=== PATIENT | male | born 1955 | race Hispanic/Latino ===

== ENCOUNTER 2017-04-09 21:38 | Observation (INO) | payer MEDICARE, OTHER ==
[2017-04-09 21:57] VITALS: BMI 29.5
[2017-04-09] MEDS ORDERED: Sodium Chloride 0.9% 1,000 ML IV STA (22:20)
[2017-04-09] MEDS ORDERED: Naloxone 0.4 mg/ml Inj (Adult) IVP STA (22:21)
--- NOTE | 2017-04-09 22:57 | ED PDOC ---
Arrival/HPI <Clarence Patel - Last Filed: 04/10/17 01:10> - General Historian: Patient, EMS <Brandon Gonzalez - Last Filed: 04/10/17 02:49> - General Chief Complaint: Trauma Time Seen by Provider: 04/09/17 22:12 - History of Present Illness Narrative History of Present Illness (Text): 04/09/17 22:50 61yo male BIBA for evaluation after he was found on the street. Per the RN, EMS notes that patient was picked up from the street, while on the ground. Pt is a poor historian, lethargic, barely clear speech. He have facial laceration. He denies any pain. 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") Hx Tuberculosis: No - Neurological Hx Neurological Disorder: No - HEENT Hx HEENT Disorder: No - Renal Hx Renal Disorder: No - Endocrine/Metabolic Hx Endocrine Disorders: No - Hematological/Oncological Hx Blood Disorders: No - Integumentary Hx Dermatological Disorder: No - Musculoskeletal/Rheumatological Hx Musculoskeletal Disorders: Yes Hx Arthritis: Yes Hx Back Pain: Yes Hx Degenerative Joint Disease: Yes Hx Falls: Yes Hx Herniated Disk: Yes Hx Rhabdomyolysis: Yes Other/Comment: RHABDOMYOLYSIS,L SHOULDER DISLOCATION 07-28-15,RIGHT SHOULDER DISLOCATION,ROTATOR CUFF TEAR,TORN MENISCUS-KNEES - Gastrointestinal Hx Gastrointestinal Disorders: Yes Hx Gastroesophageal Reflux: Yes - Genitourinary/Gynecological Hx Genitourinary Disorders: No - Psychiatric Hx Psychophysiologic Disorder: No Hx Emotional Abuse: No Hx Physical Abuse: No Hx Substance Use: Yes Other/Comment: ETOH ABUSE COCAINE PCP - Surgical History Hx Tonsillectomy: Yes (1960) - Anesthesia Hx Anesthesia: Yes Hx Anesthesia Reactions: No Hx Malignant Hyperthermia: No - Suicidal Assessment Feels Threatened In Home Enviroment: No <Brandon Gonzalez A - Last Filed: 04/10/17 02:49> Family/Social History - Physician Review Nursing Documentation Reviewed: Yes Family/Social History: Unknown Family HX Smoking Status: Heavy Smoker > 10 Cigarettes Daily Hx Alcohol Use: No (Pt denies) Hx Substance Use: Yes Substance used: cocaine, marijuana, lsd Hx Substance Use Treatment: No <Brandon Gonzalez - Last Filed: 04/10/17 02:49> Allergies/Home Meds <Clarence Patel - Last Filed: 04/10/17 01:10> <Brandon Gonzalez - Last Filed: 04/10/17 02:49> Allergies/Adverse Reactions: Allergies Penicillins Allergy (Verified 06/17/16 12:05) RASH Home Medications: Home Meds Medication Instructions Recorded Confirmed Omeprazole 40 mg PO DAILY 08/11/16 08/21/16 oxyCODONE/Acetaminophen [Percocet 1 tab PO Q4 PRN 08/11/16 08/21/16 5/325 mg Tab] Review of Systems - Physician Review All systems were reviewed & negative as marked: Yes - Review of Systems Constitutional: Normal Eyes: Normal ENT: Normal Respiratory: Normal Cardiovascular: Normal Gastrointestinal: Normal Genitourinary Male: Normal Musculoskeletal: Normal Skin: Normal Neurological: Normal Endocrine: Normal Hemo/Lymphatic: Normal Psychiatric: Normal <Brandon Gonzalez A - Last Filed: 04/10/17 02:49> Physical Exam Vital Signs Reviewed: Yes Temperature: Afebrile Blood Pressure: Normal Pulse: Tachycardic Respiratory Rate: Normal Appearance: Positive for: Well-Appearing, Non-Toxic, Comfortable Pain Distress: None Mental Status: Positive for: Lethargic - Systems Exam Head: Present: Atraumatic, Normocephalic Pupils: Present: Pinpoint Extroacular Muscles: Present: EOMI Conjunctiva: Present: Normal Mouth: Present: Moist Mucous Membranes Neck: Present: Normal Range of Motion Respiratory/Chest: Present: Clear to Auscultation, Good Air Exchange. No: Respiratory Distress, Accessory Muscle Use Cardiovascular: Present: Regular Rate and Rhythm, Normal S1, S2. No: Murmurs Abdomen: Present: Normal Bowel Sounds. No: Tenderness, Distention, Peritoneal Signs Back: Present: Normal Inspection Upper Extremity: Present: Normal Inspection. No: Cyanosis, Edema Lower Extremity: Present: Normal Inspection. No: Edema Neurological: Present: GCS=15, CN II-XII Intact, Speech Normal Skin: Present: Warm, Dry, Normal Color, Laceration (2.0cm linear laceration noted on nasolabial area), Abrasion (nose and left knee). No: Rashes Psychiatric: Present: Lethargic <Brandon Gonzalez - Last Filed: 04/10/17 02:49> Vital Signs Temp Pulse Resp BP Pulse Ox 04/09/17 23:33 89 16 100 04/09/17 23:16 100 H 20 150/96 H 96 04/09/17 21:54 98.3 F 118 H 12 110/76 92 L Medical Decision Making <Clarence Patel - Last Filed: 04/10/17 01:10> <Brandon Gonzalez - Last Filed: 04/10/17 02:49> ED Course and Treatment: 04/10/17 02:44 Pt presented for stated history. He became mildly alert in ED after narcan was given, but still appeared lethargic. He have leukocytosis on lab, source is unknown at this time. He had multiple drug substances on his drug test. Nasolabial laceration was irrigated with NS, anesthetized with 1%lido and approximated with 5 interrupted sutures with absorbable sutures. Head Ct- No acute finding Maxillofacial - Possible nasal fracture It is not cleared if pt had a syncopal episode secondary to substance use . Pt will be placed on OBS for further obs and evaluation. Case was ABBY Hills and he requested that pt be admitted under the hospitalist. Case was ABBY Angelo and she accepted the pt. (Brandon Gonzalez) - Lab Interpretations Lab Results: 04/09/17 22:50 04/09/17 22:50 Lab Results 04/10/17 00:00: Urine Opiates Screen Positive H, Urine Methadone Screen Negative , Ur Barbiturates Screen Negative, Ur Phencyclidine Scrn Positive H, Ur Amphetamines Screen Negative, U Benzodiazepines Scrn Positive H, U Oth Cocaine Metabols Positive H, U Cannabinoids Screen Negative 04/09/17 22:50: Alcohol, Quantitative < 10 04/09/17 22:50: Sodium 142, Potassium 4.8, Chloride 103, Carbon Dioxide 27, Anion Gap 17, BUN 23 H, Creatinine 1.8 H, Est GFR ( Amer) 47, Est GFR ( Non-Af Amer) 39, Random Glucose 120 H, Calcium 9.7, Total Bilirubin 0.5, AST 28 , ALT 28, Alkaline Phosphatase 66, Total Protein 8.0, Albumin 5.1 H, Globulin 3.0, Albumin/Globulin Ratio 1.7 04/09/17 22:50: WBC 15.4 H D, RBC 4.93, Hgb 14.4, Hct 43.9, MCV 89.0, MCH 29.2, MCHC 32.8, RDW 13.4, Plt Count 269, MPV 10.5, Gran % 87.1 H, Lymph % (Auto) 6.4 L, [place] % (Auto) 6.0, Eos % (Auto) 0.3 L, Baso % (Auto) 0.2, Gran # 13.41 H, Lymph # 1.0 L, [place] # 0.9 H, Eos # 0.0, Baso # 0.03 - RAD Interpretation Radiology Orders: 04/09/17 22:21 HEAD W/O CONTRAST [CT] Stat MAXILLOFACIAL W/O CONTRAST [CT] Stat - Medication Orders Current Medication Orders: Acetaminophen (Tylenol 325mg Tab) 650 mg PO Q6H PRN PRN Reason: Fever >100.4 F Famotidine (Pepcid 20mg/50ml Premix) 50 mls @ 100 mls/hr IV Q12 KRISTA Sodium Chloride (Sodium Chloride 0.9%) 1,000 mls @ 999 mls/hr IV .Q1H1M STA Stop: 04/10/17 03:34 Sodium Chloride (Sodium Chloride 0.9%) 1,000 mls @ 120 mls/hr IV .Q8H20M STA Stop: 04/10/17 10:54 Ibuprofen (Motrin Tab) 600 mg PO Q6H PRN PRN Reason: Pain, Mild (1-3) Ondansetron HCl (Zofran Inj) 8 mg IVP Q8H PRN PRN Reason: Nausea/Vomiting Discontinued Medications Sodium Chloride (Sodium Chloride 0.9%) 1,000 mls @ 999 mls/hr IV .Q1H1M STA Stop: 04/09/17 23:20 Last Admin: 04/09/17 22:58 Dose: 999 mls/hr Lidocaine HCl (Lidocaine 1% (20ml)) Confirm Administered Dose 20 ml .ROUTE .STK- MED ONE Stop: 04/10/17 01:28 Naloxone HCl (Narcan) 1 mg IVP STAT STA Stop: 04/09/17 22:22 Last Admin: 04/09/17 22:57 Dose: 1 mg Naloxone HCl (Narcan) 0.02 mg IV ONCE ONE Stop: 04/10/17 02:30 Procedure: Wound Repair - Consent Obtained Consent obtained: Verbal - Performed by Performed by: Mid-level Provider - Indications Indication(s):: Laceration - Location Location:: Face (Nasolabial area) Shape:: Linear Dimensions Length cm: 2.0 <Brandon Gonzalez A - Last Filed: 04/10/17 02:49> - PA / ELEMENT[employer] PROFESSIONAL / Resident Statement / has reviewed & agrees with the documentation as recorded. / has examined the patient and agrees with the treatment plan. <Clarence Patel - Last Filed: 04/10/17 01:10> Disposition/Present on Arrival <Clarence Patel - Last Filed: 04/10/17 01:10> - Present on Arrival Any Indicators Present on Arrival: No History of DVT/PE: No History of Uncontrolled Diabetes: No Urinary Catheter: No History of Decub. Ulcer: No History Surgical Site Infection Following: None - Disposition Have Diagnosis and Disposition been Completed?: Yes Disposition Time: 02:10 <Brandon Gonzalez A - Last Filed: 04/10/17 02:49> - Disposition Diagnosis: Syncope, Laceration, Altered mental status, Nasal bone fracture Disposition: HOSPITALIZED Condition: FAIR Discharge Instructions (ExitCare): Syncope (ED) Referrals: Bert Hills MD [Primary Care Provider] - Follow up with primary
[2017-04-09 23:10] LABS: ADD MANUAL DIFF? NO
[2017-04-09 23:20] LABS: BASO # 0.03 K/mm3 (0.0-2.0); BASO % 0.2 % (0.0-3.0); EOS % 0.3 % (1.5-5.0); GRAN # 13.41 (1.4-6.5); GRAN % 87.1 % (50.0-68.0); HEMATOCRIT 43.9 % (42.0-52.0); LYMPH % 6.4 % (22.0-35.0); MEAN CORPUSCULAR HEMOGLOBIN 29.2 pg (25.0-35.0); MEAN CORPUSCULAR HGB CONC 32.8 g/dl (31.0-37.0); MEAN PLATELET VOLUME 10.5 fl (7.0-11.0); MONO # 0.9 (0.1-0.6); PLATELET COUNT 269 10^3/uL (120.0-450.0); RED CELL DISTRIBUTION WIDTH 13.4 % (11.5-14.5); WHITE BLOOD COUNT 15.4 10^3/ul (4.5-11.0)
[2017-04-09 23:25] LABS: ALB/GLOB RATIO 1.7 (1.1-1.8); BILIRUBIN,TOTAL 0.5 mg/dL (0.2-1.3); CALCIUM 9.7 mg/dL (8.4-10.5); POTASSIUM 4.8 mmol/L (3.6-5.0)
[2017-04-10] MEDS ORDERED: Lidocaine 1% Inj (20ml) ONE (01:27)
--- NOTE | 2017-04-10 01:36 | CT ---
EXAM: CT Head Without Intravenous Contrast CLINICAL HISTORY: 61 years old, male; Injury or trauma; Fall; Initial encounter; Blunt trauma (contusions or hematomas); Consciousness not specified; Additional info: Head injury TECHNIQUE: Axial computed tomography images of the head/brain without intravenous contrast. This CT exam was performed using one or more of the following dose reduction techniques: automated exposure control, adjustment of the mA and/or kV according to patient size, and/or use of iterative reconstruction technique. COMPARISON: CT - HEAD W/O CONTRAST 06/14/2016 2:48:37 PM FINDINGS: Limitations: Motion artifact - mild. Brain: No definite intracranial hemorrhage. No mass. No definite edema. Ventricles: No hydrocephalus. Bones/joints: No calvarial fracture. Mastoid air cells: No mastoid effusion. IMPRESSION: 1. No definite intracranial hemorrhage. 2. See facial bone CT report for additional details. 3. Incidental/non-acute findings are described above.
--- NOTE | 2017-04-10 01:46 | CT ---
EXAM: CT Maxillofacial Without Intravenous Contrast CLINICAL HISTORY: 61 years old, male; Injury or trauma; Fall; Initial encounter; Blunt trauma (contusions or hematomas); Cheek bone and nose and maxilla; Bilateral; Additional info: Facial injury TECHNIQUE: Axial computed tomography images of the face without intravenous contrast. This CT exam was performed using one or more of the following dose reduction techniques: automated exposure control, adjustment of the mA and/or kV according to patient size, and/or use of iterative reconstruction technique. Coronal and sagittal reformatted images were created and reviewed. COMPARISON: No relevant prior studies available. FINDINGS: Bones/joints: Tiny midline avulsion fracture nasal bone vs soft tissue calcification. Soft tissues: Minimal facial soft tissue swelling. Orbits: Unremarkable as visualized. Sinuses: Scattered minimal mucosal thickening of ethmoid sinuses. Few maxillary retention cysts. No air-fluid levels. IMPRESSION: 1. Possible nasal fracture. 2. Incidental/non-acute findings are described above.
[2017-04-10] MEDS ORDERED: Naloxone 0.4 mg/ml Inj (Adult) IV ONE (02:29)
[2017-04-10] MEDS ORDERED: Sodium Chloride 0.9% 1,000 ML IV STA ×2 (02:34→02:35)
--- NOTE | 2017-04-10 03:01 | CP.PCM.HP ---
History of Present Illness - History of Present Illness History of Present Illness: This is a 61yo M w/ a PMhx of GERD and Polysubstance abuse who is coming to the ED s/p being brought in unresponsive by EMS services after he went on a drug binge. The patient states that "like going to the [facility], he just had a little bit of everything" after "being clean for 3 years". The patient admits to nasal pain because he fell on his face. Denies PLATA, SOB, abdominal pain, N/V/D , dysuria/freq/urg, or lower extremity pain/swelling, AV hallucinations, suicidal ideation, or the wish to hurt others. PMHx: Polysubstance abuse Allergies: PCN Surgeries: Hernia surgery and tonsillectomy in the 60's Meds: Omeprazole Social: unemployed on disability, lives in the [facility], "has been clean for 3 years ", denies EtOH, smokes 1ppd/30 years Fam Hx: Dad heart disease, Present on Admission - Present on Admission Any Indicators Present on Admission: No History of DVT/PE: No History of Uncontrolled Diabetes: No Urinary Catheter: No Decubitus Ulcer Present: No Past Patient History - Infectious Disease Hx of Infectious Diseases: None - Tetanus Immunizations Tetanus Immunization: Unknown - Past Medical History & Family History Past Medical History?: Yes - Past Social History Smoking Status: Heavy Smoker > 10 Cigarettes Daily - CARDIAC Hx Cardiac Disorders: Yes Hx Heart Murmur: Yes (ASYMPOMATIC) - PULMONARY Hx 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") Hx Tuberculosis: No - NEUROLOGICAL Hx Neurological Disorder: No - HEENT Hx HEENT Problems: No - RENAL Hx Chronic Kidney Disease: No - ENDOCRINE/METABOLIC Hx Endocrine Disorders: No - HEMATOLOGICAL/ONCOLOGICAL Hx Blood Disorders: No - INTEGUMENTARY Hx Dermatological Problems: No - MUSCULOSKELETAL/RHEUMATOLOGICAL Hx Musculoskeletal Disorders: Yes Hx Arthritis: Yes Hx Back Pain: Yes Hx Degenerative Joint Disease: Yes Hx Falls: Yes Hx Herniated Disk: Yes Hx Rhabdomyolysis: Yes Other/Comment: RHABDOMYOLYSIS,L SHOULDER DISLOCATION 07-28-15,RIGHT SHOULDER DISLOCATION,ROTATOR CUFF TEAR,TORN MENISCUS-KNEES - GASTROINTESTINAL Hx Gastrointestinal Disorders: Yes Hx Gastroesophageal Reflux: Yes - GENITOURINARY/GYNECOLOGICAL Hx Genitourinary Disorders: No - PSYCHIATRIC Hx Psychophysiologic Disorder: No Hx Emotional Abuse: No Hx Physical Abuse: No Hx Substance Use: Yes Other/Comment: ETOH ABUSE COCAINE PCP - SURGICAL HISTORY Hx Tonsillectomy: Yes (1960) - ANESTHESIA Hx Anesthesia: Yes Hx Anesthesia Reactions: No Hx Malignant Hyperthermia: No Meds Allergies/Adverse Reactions: Allergies Allergy/AdvReac Type Severity Reaction Status Date / Time Penicillins Allergy RASH Verified 06/17/16 12:05 Physical Exam - Constitutional Appears: No Acute Distress, Unkempt, Confused Additional comments: intoxicated obese male - Head Exam Additional comments: visibly broken nose - Eye Exam Eye Exam: EOMI Pupil Exam: NORMAL ACCOMODATION - ENT Exam ENT Exam: Mucous Membranes Moist - Neck Exam Neck exam: Positive for: Full Rom. Negative for: Lymphadenopathy - Respiratory Exam Respiratory Exam: Clear to Auscultation Bilateral, NORMAL BREATHING PATTERN. absent: Rales, Rhonchi, Wheezes - Cardiovascular Exam Cardiovascular Exam: REGULAR RHYTHM, +S1, +S2 - GI/Abdominal Exam GI & Abdominal Exam: Normal Bowel Sounds, Soft. absent: Tenderness - Extremities Exam Extremities exam: Negative for: calf tenderness, normal inspection Additional comments: abrasion on the left knee, able to move all extremities without pain or problem - Back Exam Back exam: NORMAL INSPECTION. absent: CVA tenderness (L), CVA tenderness (R) - Neurological Exam Neurological exam: Alert, Oriented x3 Results - Vital Signs Recent Vital Signs: Last Vital Signs Temp 98.3 F 04/09/17 21:54 Pulse 89 04/09/17 23:33 Resp 16 04/09/17 23:33 BP 150/96 H 04/09/17 23:16 Pulse Ox 100 04/09/17 23:33 - Labs Result Diagrams: 04/09/17 22:50 04/09/17 22:50 Labs: Laboratory Results - last 24 hr 04/09/17 04/09/17 04/09/17 22:50 22:50 22:50 WBC 15.4 H D RBC 4.93 Hgb 14.4 Hct 43.9 MCV 89.0 MCH 29.2 MCHC 32.8 RDW 13.4 Plt Count 269 MPV 10.5 Gran % 87.1 H Lymph % (Auto) 6.4 L [place] % (Auto) 6.0 Eos % (Auto) 0.3 L Baso % (Auto) 0.2 Gran # 13.41 H Lymph # 1.0 L Potter # 0.9 H Eos # 0.0 Baso # 0.03 Sodium 142 Potassium 4.8 Chloride 103 Carbon Dioxide 27 Anion Gap 17 BUN 23 H Creatinine 1.8 H Est GFR ( Amer) 47 Est GFR (Non-Af Amer) 39 Random Glucose 120 H Calcium 9.7 Total Bilirubin 0.5 AST 28 ALT 28 Alkaline Phosphatase 66 Total Protein 8.0 Albumin 5.1 H Globulin 3.0 Albumin/Globulin Ratio 1.7 Urine Opiates Screen Urine Methadone Screen Ur Barbiturates Screen Ur Phencyclidine Scrn Ur Amphetamines Screen U Benzodiazepines Scrn U Oth Cocaine Metabols U Cannabinoids Screen Alcohol, Quantitative < 10 04/10/17 00:00 WBC RBC Hgb Hct MCV MCH MCHC RDW Plt Count MPV Gran % Lymph % (Auto) [place] % (Auto) Eos % (Auto) Baso % (Auto) Gran # Lymph # Potter # Eos # Baso # Sodium Potassium Chloride Carbon Dioxide Anion Gap BUN Creatinine Est GFR ( Amer) Est GFR (Non-Af Amer) Random Glucose Calcium Total Bilirubin AST ALT Alkaline Phosphatase Total Protein Albumin Globulin Albumin/Globulin Ratio Urine Opiates Screen Positive H Urine Methadone Screen Negative Ur Barbiturates Screen Negative Ur Phencyclidine Scrn Positive H Ur Amphetamines Screen Negative U Benzodiazepines Scrn Positive H U Oth Cocaine Metabols Positive H U Cannabinoids Screen Negative Alcohol, Quantitative Assessment & Plan - Assessment and Plan (Free Text) Assessment: 61yo M admitted for AMS and fall AMS w/ Fall -CT Maxillofacial shows broken nasal bone -ENT eval -pain control Polysubstance Abuse (+ for PCP, Benzo, Opoids, Cocaine) -two doses of narcan given -patient is not combatitive; however erum ordered PRN for agitation as he has been in the past Leukocytosis -blood cultures f/u -VBG shock panel f/u -urinalysis f/u Proph Pepcid Heart Healthy Diet SCD Case discussed with Dr. Petey Murphy PGY1 Night Float Decision To Admit - Pt Status Changed To: Hospital Disposition Of: Observation - . Bed Request Type: Med/Surg Admitting Physician: Lyric Angelo
[2017-04-10] MEDS ORDERED: Naloxone 0.4 mg/ml Inj (Adult) IVP STA (03:08)
[2017-04-10 03:43] LABS: URINE BILIRUBIN NEGATIVE (NEGATIVE); URINE BLOOD NEGATIVE (NEGATIVE); URINE GLUCOSE (UA) NEGATIVE (NEGATIVE); URINE KETONE NEGATIVE (NEGATIVE); URINE LEUKOCYTE ESTERASE NEGATIVE Leu/uL (NEGATIVE); URINE PROTEIN 100 mg/dL (<30 mg/dL); URINE UROBILINOGEN 0.2 E.U./dL (<1 E.U./dL)
[2017-04-10 03:46] LABS: URINE APPEARANCE CLEAR (CLEAR)
[2017-04-10 03:54] LABS: INR 0.99 (0.93-1.08)
[2017-04-10 04:49] LABS: VENOUS BLOOD GAS BASE EXCESS 2.7 mmol/L (0.0-2.0); VENOUS BLOOD PH 7.41 (7.32-7.43)
[2017-04-10] MEDS ORDERED: Aztreonam 1 Gm in NS 100mL 100 ML IVPB STA (05:32)
--- NOTE | 2017-04-10 10:25 | RAD ---
HISTORY: Leukocytosis. Portable study 04:55. COMPARISON: No prior. FINDINGS: LUNGS: No active pulmonary disease. PLEURA: No significant pleural effusion identified, no pneumothorax apparent. CARDIOVASCULAR: No radiographic findings to suggest acute or significant cardiovascular disease. OSSEOUS STRUCTURES: No significant abnormalities. VISUALIZED UPPER ABDOMEN: Normal. OTHER FINDINGS: None. IMPRESSION: No active disease.
[2017-04-10] MEDS: Famotidine 20mg/50ml 20 MG/50 ML BAG IV SCH ×2 (10:39→21:04)
--- NOTE | 2017-04-10 10:39 | CARD ---
APPROVED REPORT EKG Measurement Heart [id number] HI [id number] [id number] <Conclusion> Normal sinus rhythm Left ventricular hypertrophy by voltage No change
[2017-04-10] MEDS ORDERED: Pneumococcal 23-Valent Vaccine IM ONE (14:23)
[2017-04-10] MEDS: Sodium Chloride 0.45% 1,000 ML IV SCH (19:58)
[2017-04-11 07:28] LABS: ADD MANUAL DIFF? NO
[2017-04-11 07:32] LABS: BASO # 0.02 K/mm3 (0.0-2.0); BASO % 0.2 % (0.0-3.0); EOS # 0.2 (0.0-0.7); EOS % 2.5 % (1.5-5.0); GRAN # 5.58 (1.4-6.5); GRAN % 69.6 % (50.0-68.0); HEMATOCRIT 38.8 % (42.0-52.0); LYMPH # 1.7 (1.2-3.4); LYMPH % 21.7 % (22.0-35.0); MEAN CORPUSCULAR HEMOGLOBIN 28.6 pg (25.0-35.0); MEAN CORPUSCULAR HGB CONC 32.5 g/dl (31.0-37.0); MONO # 0.5 (0.1-0.6); PLATELET COUNT 176 10^3/uL (120.0-450.0); RED CELL DISTRIBUTION WIDTH 13.3 % (11.5-14.5)
[2017-04-11 07:46] LABS: ALB/GLOB RATIO 1.5 (1.1-1.8); ALKALINE PHOSPHATASE 67 U/L (38-133); ALT/SGPT 32 U/L (7-56); AST/SGOT 21 U/L (15-59); BILIRUBIN,TOTAL 0.7 mg/dL (0.2-1.3); BLOOD UREA NITROGEN 11 mg/dL (7-21); CALCIUM 8.6 mg/dL (8.4-10.5); CARBON DIOXIDE 25 mmol/L (21-33); CHLORIDE 106 mmol/L (95-110); GFR AFRICAN-AMERICAN > 60; GLUCOSE,RANDOM 83 mg/dL (70-110); POTASSIUM 4.1 mmol/L (3.6-5.0); SODIUM 138 mmol/L (132-148)
[2017-04-11] MEDS: Sodium Chloride 0.45% 1,000 ML IV SCH (08:10)
[2017-04-11] MEDS: Famotidine 20mg/50ml 20 MG/50 ML BAG IV SCH ×2 (09:43→21:34)
[2017-04-11] MEDS: Enoxaparin 30 mg Syringe SC SCH (09:43)
--- NOTE | 2017-04-11 12:09 | US ---
HISTORY: renal failure, syncope COMPARISON: None. TECHNIQUE: Sonographic evaluation of the abdomen. FINDINGS: LIVER: Measures 16 x 14.5 cm. Hepatopedal blood flow. Fatty infiltration manifest ultrasonographically as increased echogenicity of the liver parenchyma. No mass. No intrahepatic bile duct dilatation. GALLBLADDER: Unremarkable. No gallstones. COMMON BILE DUCT: Measures 4.5 mm. No stones. No dilatation. PANCREAS: Unremarkable as visualized. No mass. No ductal dilatation. RIGHT KIDNEY: Measures 6 x 12.6cm. Normal echogenicity. No calculus, mass, or hydronephrosis. LEFT KIDNEY: Measures 5.2 x 10.9cm. Normal echogenicity. No calculus, mass, or hydronephrosis. SPLEEN: Normal in size and contour. No mass. AORTA: No aneurysmal dilatation. IVC: Unremarkable. OTHER FINDINGS: None. IMPRESSION: Hepatic steatosis. Otherwise unremarkable study.
--- NOTE | 2017-04-11 12:24 | CON ---
DATE: 04/11/2017 The patient admitted for Dr. Hills. REFERRING PHYSICIAN: Dr. Hills. REASON FOR CONSULTATION: Evaluation of a patient with mild elevation of BUN and creatinine who came in with a fall and a syncopal episode. The patient is unknown to me. HISTORY OF PRESENT ILLNESS: The patient is a 61-year-old white male with history of reflux, history of substance abuse, who apparently had a fall and syncopal episode. He was brought into the hospital by EMS. In the Emergency Room, he was noted to be positive for opiates, positive for cocaine metabo lites, positive for benzodiazepines and positive for phencyclidine. The patient states he uses large amounts of pain medication for shoulder pain and back pain. In the Emergency Room, patient was note d to have facial trauma with a possible nasal fracture. Apparently, he fell on his face. The patien t was noted to have an elevated BUN of 23 with a creatinine of 1.8. His baseline BUN is less than 20 , back in 2015. His baseline creatinine is less than 1. We are asked to evaluate patient for his el evated BUN and creatinine. His urinalysis showed white blood cells and 2+ protein. PAST MEDICAL HISTORY: Significant for GERD, perhaps substance abuse, dependence on narcotic agents f or pain control for shoulder pain and back pain. History of cigarette smoking. MEDICATIONS AT HOME: Include that of omeprazole and oxycodone. ALLERGIES: ALLERGIC TO PENICILLIN. MEDICATIONS: Currently in hospital include that of Geodon, Lovenox, Motrin, Pepcid, half normal sali ne 80 mL an hour, Tylenol and Zofran. SOCIAL HISTORY: The patient is unemployed. He lives at the [facility]. The patient is a current cigarett e smoker. He has a past history of alcohol use. FAMILY HISTORY: Positive for heart disease. REVIEW OF SYSTEMS: GENERAL: The patient states appetite and weight have been stable. ENT: Denies any hearing or visual problems. PULMONARY: No shortness of breath. No history of lung disease. CARDIAC: No known cardiac disease. GASTROINTESTINAL: History of GERD currently on proton pump inhibition therapy. GENITOURINARY: No history of kidney disease or UTI as of prostate condition. ENDOCRINE: Negative. MUSCULOSKELETAL: Shoulder pain and lower back pain. NEUROLOGIC: No history of CVA, TIA or seizures. HEMATOLOGIC AND ONCOLOGIC: No history of anemia. PSYCHIATRIC: The patient denies. PHYSICAL EXAMINATION: GENERAL: The patient is currently seen having a kidney ultrasound. VITAL SIGNS: Blood pressure 139/58, temperature 98.4, respiratory rate 20 with a pulse of 61. HEENT: Shows facial trauma to his nose. Normocephalic. Pupils equal, reactive to light and accommo dation. Extraocular muscles are intact. Conjunctivae are pink. Sclerae are nonicteric. Posterior pharynx appears normal. NECK: Supple, no neck vein distention. No thyromegaly, no lymphadenopathy, no bruits. CHEST: Clear to auscultation and percussion. No rales, no rhonchi, no wheezing. CARDIOVASCULAR: Shows a regular rate and rhythm without murmurs, rubs, or gallops. ABDOMEN: Soft. Bowel sounds normal. No rebound, no guarding, no masses. BACK: No CVAT, no spinal tenderness. EXTREMITIES: Show no cyanosis, clubbing or edema. NEUROLOGIC: Shows him to be alert, oriented x 3. No gross focal motor or sensory deficits are noted . LABORATORY DATA AND IMAGING: Head CT was negative. Maxillofacial films were positive for possible n marvin fracture. Chest x-ray showed no acute pulmonary disease. Admitting EKG showed a normal sinus r hythm with LVH. White blood cell count 15.4 on admission, now 8.0, hemoglobin has dropped from 14.4 to 12.6 with hyd ration. Platelet count is normal at 176,000. Coags are normal. Chemistries show normal electrolyte s. BUN was 23 on admission, it is 11 today, creatinine was 1.8 on admission it is 0.9 today. Glucos e is 83, calcium is 8.6. Liver enzymes are normal. Troponin is negative. Albumin is 3.6. Urine sh owed perhaps 2+ protein with 5-10 white blood cells per high power field. We will send a urine cultu re. Toxicology screen is positive as noted above. ASSESSMENT: 1. Mild prerenal azotemia on admission likely secondary to mild dehydration in the setting of a fall and syncopal episode. With IV hydration over the first day of hospitalization patient's BUN and cre atinine have returned to normal. As long as the patient remains adequately hydrated from an oral sta ndpoint, no further IV fluids if necessary. 2. History of gastroesophageal reflux disease. The patient will continue proton pump inhibition the rapy. 3. History of dependency on narcotic analgesics for pain. This will need to be evaluated perhaps by orthopedics and by Dr. Hills. 4. Continued history of cigarette smoking. 5. History of fall without syncope and possible nasal fracture, perhaps ENT evaluation. PLAN: 1. From a renal standpoint, patient is absolutely stable. His BUN and creatinine have returned to n ormal. 2. He is presently having a kidney ultrasound which according to the gi technician shows very mild hydr onephrosis on the left side with a normal right kidney. 3. ENT evaluation for his facial trauma and possible nasal fracture. 4. The patient will discuss with Dr. Hills alternative methods of pain control as he appears to be heavily dependent on oxycodone, which is giving him minimal relief from his shoulder pain and lower b ack pain. 5. Renal followup on a p.r.n. basis. Clarence Hackett MD cc: [id number] TT: 04/11/2017 12:23:40 Confirmation # [id number] Dictation # [id number] jn
[2017-04-11] MEDS ORDERED: TDAP Vaccine 0.5 mL Syr IM ONE (16:22)
[2017-04-11] MEDS: POLYETHYLENE GLYCOL 3350 17 GM/Dose PACKET PO SCH (17:46)
[2017-04-11 18:32] VITALS: RESP 20
[2017-04-12 06:21] LABS: ADD MANUAL DIFF? NO
[2017-04-12 06:31] LABS: BASO # 0.03 K/mm3 (0.0-2.0); BASO % 0.5 % (0.0-3.0); EOS # 0.2 (0.0-0.7); EOS % 3.7 % (1.5-5.0); GRAN # 3.43 (1.4-6.5); LYMPH # 1.9 (1.2-3.4); LYMPH % 31.2 % (22.0-35.0); MEAN CELL VOLUME 87.5 fL (80.0-105.0); MEAN CORPUSCULAR HEMOGLOBIN 28.9 pg (25.0-35.0); MEAN PLATELET VOLUME 9.9 fl (7.0-11.0); MONO # 0.5 (0.1-0.6); MONO % 7.6 % (1.0-6.0); PLATELET COUNT 192 10^3/uL (120.0-450.0); RED CELL DISTRIBUTION WIDTH 13.3 % (11.5-14.5)
[2017-04-12 06:49] VITALS: O2SAT 99
[2017-04-12 07:50] LABS: ALB/GLOB RATIO 1.4 (1.1-1.8); ALKALINE PHOSPHATASE 59 U/L (38-133); ALT/SGPT 24 U/L (7-56); AST/SGOT 18 U/L (15-59); BILIRUBIN,TOTAL 0.6 mg/dL (0.2-1.3); BLOOD UREA NITROGEN 14 mg/dL (7-21); CALCIUM 8.9 mg/dL (8.4-10.5); CARBON DIOXIDE 25 mmol/L (21-33); CHLORIDE 108 mmol/L (98-107); GFR AFRICAN-AMERICAN > 60; GLUCOSE,RANDOM 92 mg/dL (70-110); POTASSIUM 4.2 mmol/L (3.6-5.0); SODIUM 140 mmol/L (132-148); TOTAL PROTEIN 6.1 g/dL (5.8-8.3)
--- NOTE | 2017-04-12 08:34 | CON ---
DATE: 04/11/2017 CONSULTING PHYSICIAN: Dr. Mijares REFERRING PHYSICIAN: Dr. Lyric Angelo REASON FOR CONSULTATION: Nasal bone fracture. HISTORY OF PRESENT ILLNESS: This is a 61-year-old male with a past medical history of substance abus e and reflux who had a syncopal episode and fall on his face yesterday. He was brought into the [facility] Room by the EMS. In the Emergency Room, he was noted to be positive for opiates, cocaine, adore odiazepines and phencyclidine. He was also noted to have facial trauma and subsequently had a maxill ofacial CT scan demonstrating a possible nasal bone fracture. At this point, ear, nose, and throat s er was consulted to evaluate him. Upon examination, the patient remembers falling on his face. He denies having a lot of epistaxis at the time. He denies that his nose looks any different to him. He denies any facial or nasal pain. He states that he has some slight nasal obstruction when breat abner; however, that is his baseline. He denies any further bleeding after the episode of falling on his face. At this point, the patient states that he does not wish to do anything about his nose, even if there is a nasal fracture and does not wish to continue with the examination, stating that he cheyenen l instead go to sleep. The remainder of the patient's history was gathered from the chart. PAST MEDICAL HISTORY: GERD and substance abuse. MEDICATIONS: He is currently on Tylenol, aztreonam, Lovenox, ibuprofen, Zofran, famotidine, and zipr asidone. ALLERGIES: ALLERGIC TO PENICILLIN PER CHART. SOCIAL HISTORY: Currently a cigarette smoker, has a past history of substance abuse. PAST SURGICAL HISTORY: Unable to obtain due to patient being uncooperative with exam. REVIEW OF SYSTEMS: Unable to obtain due to patient being uncooperative with exam. PHYSICAL EXAMINATION: VITAL SIGNS: Temperature 98.4, pulse is 61, blood pressure 139/58, respirations 20, O2 saturation 92 % on room air. GENERAL: He is awake, alert, oriented x 3, lying comfortably, does not wish to be bothered. EYES: Extraocular movements intact grossly, open. NOSE: There is some dried blood on the outside of the tip of his nose. There is some edema to the d orsum of the nose. There is a deviation of the nose to the left, however, patient states that this i s what his nose always looked like. There is no septal hematoma, no active epistaxis, no discharge. MOUTH: Poor dentition. Oral mucosa dry. RESPIRATORY: Respirations are nonlabored. No stridor. LABORATORIES: He has a white count of 8, hemoglobin 12.6, hematocrit 38.8, platelets 176. Sodium 13 8, potassium 4.1, chloride 106, carbon dioxide 25, BUN 11, creatinine 0.9, ALT 21, AST 32, albumin 3. 6. There is a toxicology screen from 04/10 that is positive for urine opiates, urine phencyclidine, u rine benzodiazepines and urine cocaine metabolites. RADIOLOGY: There is a maxillofacial CT scan from 04/09, which reads tiny midline avulsion fracture of the nasal bone versus soft tissue calcification. Soft tissues: Minimal facial soft tissue swelling . Orbits unremarkable as visualized. Sinuses: Scattered minimal mucosal thickening of ethmoid sinu ses, few maxillary retention cysts, no air fluid levels. IMPRESSION: Possible nasal fracture and 2 incidental nonacute findings are described above. ASSESSMENT AND PLAN: This is a 61-year-old male with a history of substance abuse who fell on his fa ce and sustained trauma to the nasal bones with a possible nasal bone fracture. PLAN: The CT scan was reviewed. There is no definite nasal bone fracture demonstrated at this time. This was communicated to the patient, who wishes to be left alone and to not pursue any treatment. The patient was instructed that he could follow up with the ENT service as an outpatient if he grove es his mind. I would recommend nasal saline sprays to the nose bilaterally and bacitracin to the nos e bilaterally to prevent any epistaxis and to moisten the nasal mucosa. However, due to patient's un cooperativeness, he may not be able to pursue these treatments. Should the patient change his mind, he can follow up with us as an outpatient once he is discharged from the hospital. The remainder of the care is as per the primary team. Kalyan Mijares DO cc: [id number] TT: 04/11/2017 16:28:23 Confirmation # [id number] Dictation # [id number] en
--- NOTE | 2017-04-12 08:53 | HP ---
CHIEF COMPLAINT: The patient found on the floor, syncope. HISTORY OF PRESENT ILLNESS: This 61-year-old male has multiple joint problems, back pain, on oxycodo ne as outpatient; history of drug abuse, cocaine; and found to be on the floor with some abrasions in his left ____ and in his left knee. The patient also was poorly responding; however, he wakes up, h e responds, and then he goes back to sleep. He moves all extremities. They brought him to the ER for further evaluation. He denied chest pain, denied shortness of breath, does not seem to be in any re spiratory distress when he came in. PAST MEDICAL HISTORY: As I said, rotator cuff tear in both shoulders, has meniscus injury to both kn ees, has chronic disk disease in the lower lumbosacral area, he is overweight, history of drug abuse. The patient has been on pain medicine and found to have positive urine drug screen as outpatient fo r cocaine and advised to see another doctor for pain management. ALLERGIES: PENICILLIN. SOCIAL HISTORY: He lives by himself. FAMILY HISTORY: Noncontributory. REVIEW OF SYSTEMS: As in the present illness, he also complained of pains in his joints, in his knee s and his back and his shoulder. He does have a lot of joint pain. PHYSICAL EXAMINATION: VITAL SIGNS: Temperature 98.9, heart rate 87, blood pressure 123/77, respirations 20, saturating 96% on room air. HEAD AND NECK: No JVD, no thyromegaly. CHEST: Clear, good air entry. CARDIAC: First sound, second sound normal. ABDOMEN: Soft, obese, nontender. EXTREMITIES: No edema. NEUROLOGIC: The patient moves all extremities. He does have some abrasion on the left knee and left ____. The patient, when I saw him, he was alert, awake, oriented x 3. LABORATORY DATA: White count 15.4, hemoglobin 14.4, hematocrit 43.9, platelets 209. The patient als o had a chemistry that shows sodium 142, potassium 4.8, chloride 103, bicarb 27, BUN 23, creatinine 1 .8, blood sugar 120. Liver function test is normal. Albumin 5.1, globulin 3. Venous potassium 4.7. The patient also had a head CT when he came in which shows no definite intracranial hemorrhage. He h as no mastoid effusions, no fractures and no hydrocephalus. The patient also has maxillofacial CT scan and it showed no evidence ____. He has also possible nasa l fracture. IMPRESSION AND PLAN: 1. This is a 61-year-old male who was admitted initially by hospitalist. Evaluation seen and patien t had syncope or change in mental status, found on the floor, multiple etiology could be. It could b e syncope, could be rule out cardiac. Will get a cardiology consult. Also, he has medications, the use of drugs; could be drug related/ overdose. 2. The patient does have leukocytosis. Could be underlying infection. Will repeat labs. Cultures still pending. 3. Also has acute renal failure. Will give him IV fluid. Repeat labs in the morning. 4. Will consider other consultants: Renal consult, cardiology consult and psych consult. 5. The patient needs to be evaluated by a psychiatrist also for his behavioral problems and will fol low up on daily basis. 6. Repeat labs in the morning. 7. Also, Dr. Jeffries, ENT consult has been done. Wound evaluation, cleaning and recommendation to ge t tetanus shot. Bert Hills MD cc: [phone] TT: 04/12/2017 08:24:26 oh
--- NOTE | 2017-04-12 09:00 | PN ---
DATE: 04/11/2017 SUBJECTIVE: The patient was seen on telemetry floor. He responded properly. He has no chest pain, no respiratory distress. PHYSICAL EXAMINATION: VITAL SIGNS: The patient has temperature 98.4, heart rate 61, blood pressure 139/58, respirations 20 , saturation 93% on room air. HEAD AND NECK: Normal. No JVD. Some abrasion left eye, facial. CHEST: Clear, good entry. CARDIAC: First and second sounds are normal. ABDOMEN: Soft, obese, nontender. EXTREMITIES: No edema. NEUROLOGIC: Is normal. LABORATORY DATA: He had also ABGs, pO2 193 on room air, pH 7.41, pCO2 44, bicarb 27. The patient al so had a CBC today. Repeat CBC shows normal white count 8, hemoglobin 12.6, hematocrit 38.8, platele ts 176. The patient had chemistries, show sodium 138, potassium 4.1, chloride 106, bicarb 25, BUN 11 , creatinine 0.9, which is normalized. Repeat troponin was negative, and procalcitonin also was nega tive. IMPRESSION AND PLAN: 1. Syncope, etiology unclear, probably drug overdose. Will get a psych evaluations to evaluate the patient for reason for his syncope. Probably drug overdose and behavioral disorder. Rule out underl krish depressions. Spoke with the patient about pain medicine, controlled substance, how to use it, a lthough he does have a lot of etiology for his pain, but he seems abusing drugs, cocaine Emergency Ro om on previous admissions, he has heroin, so recommend for him Suboxone to get off drugs, if he reall y needs to get off, and will get Dr. Quinones's psych evaluation. 2. Acute renal failure, resolved. 3. Syncope. I will consider cardiology to evaluate this patient for any cardiac events. 4. Also will give him Bactroban locally for his wound and tetanus shot. 5. Will continue gastrointestinal and deep venous thrombosis prophylaxis, Tylenol, Zofran, erasto ry 12 hours p.r.n. for his agitations. Bert Hills MD cc: [phone] TT: 04/11/2017 23:45:06 Confirmation # [id number] Dictation # [id number] dn
[2017-04-12] MEDS: Enoxaparin 30 mg Syringe SC SCH (09:17)
[2017-04-12] MEDS: POLYETHYLENE GLYCOL 3350 17 GM/Dose PACKET PO SCH (09:17)
[2017-04-12] MEDS: Famotidine 20mg/50ml 20 MG/50 ML BAG IV SCH (09:17)
--- NOTE | 2017-04-12 12:24 | PN ---
DATE: 04/12/2017 SUBJECTIVE: The patient is seen lying in bed. He is complaining of pain in his muscles on the left side of the chest. He is also complaining of some nasal congestion. He denies any chest pain. He d enies any shortness of breath. Denies any nausea, vomiting. PHYSICAL EXAMINATION: GENERAL: Elderly male lying in bed. VITAL SIGNS: Blood pressure 117/77, heart rate 61, respiratory rate 20, temperature 98.6. HEENT: Normocephalic, atraumatic. NECK: Supple, no JVD. LUNGS: Bilateral equal air entry, occasional rhonchi, tenderness to touch on the left side of the ch est. CARDIAC: S1, S2, regular rate and rhythm, no murmur, no rub. ABDOMEN: Obese, distended, soft, nontender, bowel sounds present. EXTREMITIES: No lower extremity edema. INTAKE AND OUTPUT: 1140/1450. LABORATORY DATA: WBC 6, hemoglobin 13, hematocrit 40, platelets 192. Sodium 140, potassium 4.2, chl oride 108, CO2 25, BUN 14, creatinine 0.8, glucose 92, calcium 8.9, magnesium 2.2. AST 18, ALT 24, a lbumin 3.6. Urinalysis: Yellow, clear, pH 6.0, specific gravity 1.025, protein 100, leukocyte elver ase negative. CURRENT MEDICATIONS: Colace, Geodon, Lovenox, MiraLax, ibuprofen, Pepcid, Tylenol, Zofran. ASSESSMENT: A 61-year-old male with history of reflux, substance abuse, admitted after a fall at [facility]. As per patient, his bad knee kicked the cane and hence he fell to the floor. He denies having lo st consciousness. At the time of admission, his BUN was 23 and creatinine was 1.8. 1. Prerenal azotemia, resolved; renal function is normal now. 2. Gastroesophageal reflux disease. 3. Narcotic dependence. 4. Status post fall. PLAN: The patient is stable at this time. No renal issues. Will discontinue followup. Karin Florez MD cc: [id number] TT: 04/12/2017 12:23:59 Confirmation # [id number] Dictation # [id number] mn
[2017-04-12 12:52] VITALS: BP 148/103; PULSE 81; TEMP 98.4
--- NOTE | 2017-04-12 16:19 | CON ---
DATE: 04/12/2017 HISTORY OF PRESENT ILLNESS: The patient is a 61-year-old male who fell from a mechanical fall with s ome head trauma which resulted in loss of consciousness. PAST MEDICAL HISTORY: Notable for heavy alcohol abuse. CT scan in the Emergency Room revealed no acute intracranial hemorrhage. The patient's past medical history is notable for a small VSD noted on a previous echocardiogram. No chest pain, no shortness of breath, no history of syncope in the past. The patient is also taking oxycodone as well. SOCIAL HISTORY: He is an active smoker. REVIEW OF SYSTEMS: A 14-point was reviewed. No cardiac symptomatology is noted. PHYSICAL EXAMINATION: VITAL SIGNS: Blood pressure is 117/77, heart rate is in the 60s. NECK: Negative JVD. LUNGS: Without rales. HEART: Reveals S1, S2 with a II/ systolic murmur. EXTREMITIES: Without edema. LABORATORIES: Includes an EKG that shows a normal sinus rhythm with no acute changes. The troponins are negative x 2. The hemoglobin is 13.2 with an MCV of 87. IMPRESSION: 1. Status post mechanical fall. 2. Loss of consciousness after head trauma. 3. No evidence of intracranial bleed. 4. History of alcoholism. 5. History of a small ventricular septal defect. 6. Chronic obstructive pulmonary disease. Given these findings, we will obtain an echocardiogram to evaluate his left ventricular function as w ell as his previous ventricular septal defect. We will monitor on telemetry for 24 hours. Antwon Claire MD cc: [id number] TT: 04/12/2017 16:18:09 Confirmation # [id number] Dictation # [id number] en
--- NOTE | 2017-04-12 17:16 | CON ---
DATE: 04/12/2017 HISTORY OF PRESENT ILLNESS: The patient is a 61-year-old male who had a syncopal episode and fell on his face on the sidewalk. He was brought to the Emergency Room and admitted to the hospital, seen b y a nursing clinical director, his primary care physician and an application security specialist. The patient has a history of aguilera bstance abuse. He claims he has been taking oxycodone 30 mg t.i.d. for at least 4 months. The patie nt was found to have rhabdomyolysis. The patient also was found to be abusing cocaine and also was f ound to be abusing PCP approximately a month ago. PAST MEDICAL HISTORY: He has a history of multiple orthopedic problems. He has torn rotator cuffs. He has a history of knee problems with torn menisci. He has chronic disk disease in the lower lumbo sacral area. The patient denies any previous psychiatric treatment or admissions. He, 30 years ago, was in [facility] for alcohol abuse, but denies any drinking at this time or recently. PERSONAL HISTORY: He lives alone. He is on social security disability since 2012. He was a former environmental health manager. He has 2 children, who live in [place] ([place] CURRENT LABORATORY DATA: His white count is 6000, hemoglobin of 13.2, platelet count 192,000. His m etabolic profile is essentially all totally within normal range. The patient's urinalysis is clear w ith urinary protein of 100 mg/dL. The patient's urine for toxicology was positive for opiates, phenc yclidine, benzodiazepine and cocaine metabolites. He had no alcohol in his system. The patient had a CT scan of the head. The patient had no intracranial hemorrhage. The patient had a maxillofacial CT scan. The patient had possible nasal fracture. The patient had a tiny midline avulsion of the na rachel bone. REVIEW OF SYSTEMS: He has pain in shoulders, knees and face. Otherwise, rest of 10 point review non contributory. CURRENT MEDICATIONS: Include Bactroban ointment, Colace. He has an order for p.r.nLuciana Geodon. He has not had any of that. He is on Pepcid, Lovenox, MiraLax and Colace. VITAL SIGNS: Blood pressure 117/77, pulse 61, he is afebrile, respirations 20 per minute. PSYCHIATRIC MENTAL STATUS: He is awake. He is sitting at the bedside. He has poor eye contract. He i s awake, alert. Some degree of depressed facies, some degree of being guarded to some questions. He admits substance abuse. He also states he has been very depressed, feels at times that life is not w orth living. Denies suicidal plan. Denies hallucinations, paranoia, or other psychotic symptomatolo gy. He is oriented x 3. Recent and remote memory are intact. IMPRESSION: The patient has major depressive disorder. He has no signs of opiate withdrawal. He has substance abuse -- cocaine, phencyclidine and benzodiazepines. He has a history of possible nasal f racture. He has a history of syncopal episodes, abrasions to the face. The patient has torn rotator cuffs on both arms and meniscus injury in both knees. The patient also has a history of rhabdomyoly sis. PLAN: Discussed with patient inpatient psychiatric treatment. He absolutely refuses. Denies suicid al intent. He says it is something he would never do. I told him that if his mental status deterior ates or he feels worse, he should come back to the Emergency Room for admission to the psychiatric it, but at the very least, he should see a psychiatrist, either privately or with the [facility] as soon as possible. The patient also needs probably Narcotics Anonymous and pain management. Thai Quinones MD cc: [id number] TT: 04/12/2017 17:15:48 Confirmation # [id number] Dictation # [id number]
--- NOTE | 2017-04-12 20:29 | CARD ---
APPROVED REPORT EXAM: Two-dimensional and M-mode echocardiogram with Doppler and color Doppler. INDICATION VSD 2D DIMENSIONS Left Atrium (2D)4.9 (1.6-4.0cm)IVSd1.1 (0.7-1.1cm) LVDd5.4 (3.9-5.9cm)PWd1.2 (0.7-1.1cm) LVDs3.7 (2.5-4.0cm)FS (%) 31.3 % LVEF (%)58.5 (>50%) M-Mode DIMENSIONS Aortic Root3.50 (2.2-3.7cm)Aortic Cusp Exc.1.90 (1.5-2.0cm) Aortic Valve AoV Peak Hwrbwgtl891.0cm/Leyla Peak GR.8mmHg Mitral Valve MV E Cnlmmsfs451.0cm/sMV A Eyfqjcar42.4cm/sE/A ratio1.2 TDI Lateral E' Peak V14.00cm/sMedial E' Peak V9.07cm/sE/Lateral E'8.4 E/Medial E'13.0 Pulmonary Valve PV Peak Ariqaldd02.3cm/sPV Peak Grad.2mmHg Tricuspid Valve TR Peak Pjgjamlv462sx/sRAP FWRLHMSE40epQeXQ Peak Gr.29mmHg [id number] LEFT VENTRICLE The left ventricle is normal size. There is borderline concentric left ventricular hypertrophy. The left ventricular function is normal. The left ventricular ejection fraction is within the normal range. There is normal LV segmental wall motion. A small sized membranous ventricular septal defect is suggestive in some views. RIGHT VENTRICLE The right ventricle is normal size. There is normal right ventricular wall thickness. The right ventricular systolic function is normal. ATRIA The left atrium is mildly dilated. The right atrium is borderline dilated. AORTIC VALVE The aortic valve is mildly thickened. MITRAL VALVE The mitral valve is moderately thickened. Mitral regurgitation is moderate. TRICUSPID VALVE There is mild pulmonary hypertension. GREAT VESSELS The aortic root is normal in size. The IVC is normal in size and collapses >50% with inspiration. PERICARDIAL EFFUSION There is no pericardial effusion. <Conclusion> The left ventricle is normal size. There is borderline concentric left ventricular hypertrophy. The left ventricular function is normal. The left ventricular ejection fraction is within the normal range. There is normal LV segmental wall motion. A small sized membranous ventricular septal defect is suggestive in some views. Mitral regurgitation is moderate. There is mild pulmonary hypertension.
--- NOTE | 2017-04-13 14:04 | PN ---
DATE: 04/12/2017 SUBJECTIVE: The patient is without recurrent dizziness. PHYSICAL EXAMINATION: VITAL SIGNS: Blood pressure 148/103, heart rate is in the 80s. NECK: Negative JVD. LUNGS: Without rales. HEART: Reveals S1, S2 with a II/ systolic ejection murmur. EXTREMITIES: Without edema. LABORATORY DATA: Hemoglobin of 13.2. Troponins are negative x 1. Echocardiogram reveals good LV fu nction with a persistent small VSD, which is old. There is mild pulmonary hypertension and mild mitr al regurgitation. IMPRESSION: 1. Status post mechanical fall. 2. History of alcohol and substance abuse. 3. Persistent ventricular septal defect. 4. Chronic obstructive pulmonary disease. PLAN: Given these findings, the patient refuses further treatment. He was evaluated by psychiatry a nd refused inhouse psychiatric care. The patient will be discharged. Antwon Claire MD cc: [facility] TT: 04/13/2017 14:04:18 Confirmation # [id number] Dictation # [id number] darian
== END 2017-04-12 16:10 | disposition home or self-care (01) ==
LOC: ED 21:38 → ERH 04-10 02:42 → 2RNO 04-10 13:19
PROVIDERS: ADMIT Hospitalist; ATTEND Internal Medicine
DX: R55 Syncope and collapse (principal); S01.81XA Laceration without foreign body of other part of head, initial encounter; M62.82 Rhabdomyolysis; N17.9 Acute kidney failure, unspecified; F11.20 Opioid dependence, uncomplicated; F10.20 Alcohol dependence, uncomplicated; F14.10 Cocaine abuse, uncomplicated; M54.9 Dorsalgia, unspecified; E66.3 Overweight; D72.829 Elevated white blood cell count, unspecified; F32.9 Major depressive disorder, single episode, unspecified; F17.210 Nicotine dependence, cigarettes, uncomplicated; K21.9 Gastro-esophageal reflux disease without esophagitis; Z56.0 Unemployment, unspecified; J44.9 Chronic obstructive pulmonary disease, unspecified; Z23 Encounter for immunization; S80.212A Abrasion, left knee, initial encounter; W18.30XA Fall on same level, unspecified, initial encounter; Y93.9 Activity, unspecified; Y92.480 Sidewalk as the place of occurrence of the external cause; Y99.9 Unspecified external cause status; Z88.0 Allergy status to penicillin
CPT/HCPCS: 36415; 70450; 70486; 71010; 76700; 80053; 81001; 82803; 83735; 84145; 84484; 85025; 85610; 87040; 87086; 90471; 90715; 93005; 93306; 96361; 96365; 96366; 96372; 96375; 96376; 99285; G0378; G0480; J1650; J2310; J7030; J7040

== ENCOUNTER 2017-07-03 05:41 | Observation (INO) | payer MEDICARE, OTHER ==
[2017-07-03 05:45] VITALS: BMI 30.4
--- NOTE | 2017-07-03 06:47 | ED PDOC ---
Arrival/HPI - General Historian: EMS - History of Present Illness Time/Duration: Prior to Arrival Symptom Onset: Sudden Symptom Course: Unchanged Context: Home <CARRIE SOTO - Last Filed: 07/03/17 06:43> <Harrison Hunter - Last Filed: 07/03/17 06:51> <Yg Carbone - Last Filed: 07/03/17 09:40> - General Chief Complaint: Substance Abuse Time Seen by Provider: 07/03/17 05:53 - History of Present Illness Narrative History of Present Illness (Text): Patient is a 61 year old male brought to [facility] Emergency department on 07/03/17 via EMS. EMS was called to [facility] where patient resides due to patient being found by another resident unresponsive. By time EMS arrived at [facility] patient was responsive and altered mentally. Present history is limited due to inability of patient to communicate and AMS. 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 - Musculoskeletal/Rheumatological Hx Musculoskeletal Disorders: Yes Hx Arthritis: Yes Hx Back Pain: Yes (CHRONIC) Hx Degenerative Joint Disease: Yes Hx Falls: Yes (04-09-17) Hx Herniated Disk: Yes Hx Rhabdomyolysis: Yes Other/Comment: RHABDOMYOLYSIS,L SHOULDER DISLOCATION 07-28-15,RIGHT AND LEFT SHOULDER DISLOCATION,ROTATOR CUFF TEAR,TORN MENISCUS-KNEES - Gastrointestinal Hx Gastrointestinal Disorders: Yes Hx Gastroesophageal Reflux: Yes - Genitourinary/Gynecological Hx Genitourinary Disorders: No - Psychiatric Hx Psychophysiologic Disorder: Yes Hx Emotional Abuse: No Hx Physical Abuse: No Hx Substance Use: No Other/Comment: ETOH ABUSE COCAINE PCP, 04-10-17 BINGE USE OF ILLICIT SUBSTANCE USE.USED 3 BAGS OF HEROINE,COCAINE,PCP, HAS BEEN CLEAN FOR 3 YRS.RELAPSED. - Surgical History Other/Comment: RIGHT LEFT ROTATOR CUFF SURGERY, BILATERAL KNEE MENISCAL TEAR, TONSILLECTOMY. - Anesthesia Hx Anesthesia: Yes Hx Anesthesia Reactions: No Hx Malignant Hyperthermia: No - Suicidal Assessment Feels Threatened In Home Enviroment: No <CARRIE SOTO - Last Filed: 07/03/17 06:43> Family/Social History - Physician Review Nursing Documentation Reviewed: Yes Family/Social History: Other Smoking Status: Current Some Days Smoker Hx Alcohol Use: Yes (H/O 4 YRS AGO-2012) Hx Substance Use: No Substance used: cocaine, marijuana, lsd Hx Substance Use Treatment: No <CARRIE SOTO - Last Filed: 07/03/17 06:43> <Harrison Hunter - Last Filed: 07/03/17 06:51> <Yg Carbone - Last Filed: 07/03/17 09:40> Narrative Family History (Free Text): non contributory 07/03/17 06:48 (CARRIE SOTO) Allergies/Home Meds <CARRIE SOTO - Last Filed: 07/03/17 06:43> <Harrison Hunter - Last Filed: 07/03/17 06:51> <Yg Carbone - Last Filed: 07/03/17 09:40> Allergies/Adverse Reactions: Allergies Penicillins Allergy (Verified 04/10/17 13:32) RASH Home Medications: Home Meds Medication Instructions Recorded Confirmed Omeprazole 40 mg PO DAILY 08/11/16 04/10/17 oxyCODONE [oxyCODONE Immediate 15 mg PO QID 04/10/17 04/10/17 Release Tab] Review of Systems - Physician Review All systems were reviewed & negative as marked: Yes - Review of Systems Systems not reviewed;Unavailable: Intoxicated <CARRIE SOTO - Last Filed: 07/03/17 06:43> Physical Exam - Physical Exam Physical Exam Limitations: Altered Mental Status, Intoxication, Uncooperative <CARRIE SOTO - Last Filed: 07/03/17 06:43> Medical Decision Making <CARRIE SOTO - Last Filed: 07/03/17 06:43> <Harrison Hunter - Last Filed: 07/03/17 06:51> <Yg Carbone - Last Filed: 07/03/17 09:40> ED Course and Treatment: Assessment 61 year old male here for substance abuse and ams Plan Will keep patient under observation until sober 07/03/17 06:49 (CARRIE SOTO) 07/03/17 06:51 Seen and examined with resident. 61 y/o M BIBEMS with altered mental status. Patient with bottle of oxycodone with straw in bottle. Patient breathing spontaneously, slurred speech, drowsy. Placed on observation pending sobriety. Will signed out to ER day team. (Harrison Hunter) 07/03/17 07:15 Patient was turned over to me by waiting for the patient to sober up. Patient is extremely lethargic, but arousable. Workup has been initiated. Exam is nonfocal. 07/03/17 08:45 Patient is now much more awake, though still not able to ambulate properly. Workup is positive for polysubstance abuse. Patient is trying to go home, but he does not know where he lives. Soft restraints are placed for patient protection. He will be reevaluated for discharge after sobering up further. 07/03/17 09:39 Patient was up walking to the bathroom in no acute distress and awake and alert and will be discharged home (Yg Carbone) ED OBSERVATION <CARRIE SOTO - Last Filed: 07/03/17 06:43> Date of observation admission: 07/03/17 Time of observation admission: 06:52 <Harrison Hunter - Last Filed: 07/03/17 06:51> <Yg Carbone - Last Filed: 07/03/17 09:40> - Observation admission statement Patient is being placed in observation because:: intoxication (Harrison Hunter) - Goals of Observation Goals of observation are:: sobriety (Harrison Hunter) Disposition/Present on Arrival - Present on Arrival History of DVT/PE: No History of Uncontrolled Diabetes: No Urinary Catheter: No History of Decub. Ulcer: No History Surgical Site Infection Following: None - Disposition Patient Plan: Observation <CARRIE SOTO - Last Filed: 07/03/17 06:43> - Disposition Disposition Time: 06:52 <Harrison Hunter - Last Filed: 07/03/17 06:51> - Present on Arrival Any Indicators Present on Arrival: No History of DVT/PE: No History of Uncontrolled Diabetes: No Urinary Catheter: No History of Decub. Ulcer: No - Disposition Have Diagnosis and Disposition been Completed?: Yes Disposition Time: 09:40 Patient Plan: Discharge <Yg Carbone - Last Filed: 07/03/17 09:40> - Disposition Diagnosis: Polysubstance abuse Disposition: HOME/ ROUTINE Condition: IMPROVED
[2017-07-03 07:46] LABS: BASO # 0.03 K/mm3 (0.0-2.0); BASO % 0.3 % (0.0-3.0); EOS # 0.3 (0.0-0.7); EOS % 3.1 % (1.5-5.0); GRAN # 6.94 (1.4-6.5); GRAN % 67.7 % (50.0-68.0); HEMATOCRIT 41.1 % (42.0-52.0); LYMPH # 2.2 (1.2-3.4); LYMPH % 21.7 % (22.0-35.0); MEAN CELL VOLUME 86.3 fl (80.0-105.0); MEAN CORPUSCULAR HEMOGLOBIN 27.9 pg (25.0-35.0); MEAN CORPUSCULAR HGB CONC 32.4 g/dl (31.0-37.0); MEAN PLATELET VOLUME 9.9 fl (7.0-11.0); MONO # 0.7 (0.1-0.6); MONO % 7.2 % (1.0-6.0); RED CELL DISTRIBUTION WIDTH 14.2 % (11.5-14.5); URINE BILIRUBIN NEGATIVE (NEGATIVE); URINE BLOOD SMALL (NEGATIVE); URINE GLUCOSE (UA) NEGATIVE (NEGATIVE); URINE KETONE NEGATIVE (NEGATIVE); URINE LEUKOCYTE ESTERASE NEGATIVE Leu/uL (NEGATIVE); URINE PROTEIN NEGATIVE mg/dL (<30 mg/dL); URINE UROBILINOGEN 0.2 E.U./dL (<1 E.U./dL); WHITE BLOOD COUNT 10.3 10^3/ul (4.5-11.0)
[2017-07-03 07:49] LABS: URINE APPEARANCE CLEAR (CLEAR); URINE COLOR YELLOW (YELLOW)
[2017-07-03 07:59] LABS: URINE BACTERIA TRACE (NEG); URINE EPITHELIAL CELLS 0 - 2 /hpf (0-5); URINE WBC 0 - 2 /hpf (0-6)
[2017-07-03 08:02] LABS: INR 1.01 (0.93-1.08); PARTIAL THROMBOPLASTIN TIME 26.6 Seconds (23.7-30.8)
[2017-07-03 09:16] LABS: ALB/GLOB RATIO 1.8 (1.1-1.8); ALKALINE PHOSPHATASE 72 U/L (38-126); ALT/SGPT 25 U/L (7-56); AST/SGOT 22 U/L (17-59); BILIRUBIN,TOTAL 0.5 mg/dL (0.2-1.3); BLOOD UREA NITROGEN 18 mg/dL (7-21); CALCIUM 9.3 mg/dL (8.4-10.5); CARBON DIOXIDE 27 mmol/L (21-33); CHLORIDE 104 mmol/L (98-107); GFR AFRICAN-AMERICAN > 60; GLUCOSE,RANDOM 86 mg/dL (70-110); PHOSPHOROUS 3.9 mg/dL (2.5-4.5); POTASSIUM 4.1 mmol/L (3.6-5.0); SODIUM 143 mmol/L (132-148); TOTAL PROTEIN 6.6 g/dL (5.8-8.3)
[2017-07-03 09:27] LABS: TROPONIN I < 0.01 ng/mL
[2017-07-03 12:50] VITALS: RESP 16
[2017-07-03 13:15] VITALS: BP 143/82; PULSE 76; TEMP 98.6; O2SAT 98
== END 2017-07-03 14:07 | disposition home or self-care (01) ==
LOC: ED 05:41 → EROBSV 06:50
PROVIDERS: ADMIT Student in an Organized Health Care Education/Training Program; ATTEND Student in an Organized Health Care Education/Training Program
DX: F19.10 Other psychoactive substance abuse, uncomplicated (principal)
CPT/HCPCS: 36415; 80053; 81001; 82550; 83615; 83735; 84100; 84484; 85025; 85610; 85730; 99285; G0378; G0480

== ENCOUNTER 2017-07-09 04:39 | Emergency (ER) | payer MEDICARE, OTHER ==
[2017-07-09 04:40] VITALS: BMI 30.4
[2017-07-09] MEDS ORDERED: Ketamine 10 mg/ml Inj (20 ml) IV ONE (05:25)
[2017-07-09] MEDS ORDERED: Midazolam 2 MG/2 ML VIAL IVP STA (05:25)
[2017-07-09 06:18] VITALS: TEMP 98.1
--- NOTE | 2017-07-09 06:33 | ED PDOC ---
Arrival/HPI - General Chief Complaint: Upper Extremity Problem/Injury Time Seen by Provider: 07/09/17 04:41 - History of Present Illness Narrative History of Present Illness (Text): 07/09/17 06:30 61 yo male, hx of substance abuse, presetns with right shoulder pain after "he slept on it " no other injury or complaint. no head injury. no loc. 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 - Musculoskeletal/Rheumatological Hx Musculoskeletal Disorders: Yes Hx Arthritis: Yes Hx Back Pain: Yes (CHRONIC) Hx Degenerative Joint Disease: Yes Hx Falls: Yes (04-09-17) Hx Herniated Disk: Yes Hx Rhabdomyolysis: Yes Other/Comment: RHABDOMYOLYSIS,L SHOULDER DISLOCATION 07-28-15,RIGHT AND LEFT SHOULDER DISLOCATION,ROTATOR CUFF TEAR,TORN MENISCUS-KNEES - Gastrointestinal Hx Gastrointestinal Disorders: Yes Hx Gastroesophageal Reflux: Yes - Genitourinary/Gynecological Hx Genitourinary Disorders: No - Psychiatric Hx Psychophysiologic Disorder: Yes Hx Emotional Abuse: No Hx Physical Abuse: No Hx Substance Use: No Other/Comment: ETOH ABUSE COCAINE PCP, 04-10-17 BINGE USE OF ILLICIT SUBSTANCE USE.USED 3 BAGS OF HEROINE,COCAINE,PCP, HAS BEEN CLEAN FOR 3 YRS.RELAPSED. - Surgical History Other/Comment: RIGHT LEFT ROTATOR CUFF SURGERY, BILATERAL KNEE MENISCAL TEAR, TONSILLECTOMY. - Anesthesia Hx Anesthesia: Yes Hx Anesthesia Reactions: No Hx Malignant Hyperthermia: No - Suicidal Assessment Feels Threatened In Home Enviroment: No Family/Social History - Physician Review Nursing Documentation Reviewed: Yes Family/Social History: Unknown Family HX Smoking Status: Current Some Days Smoker Hx Alcohol Use: Yes (H/O 4 YRS AGO-2013) Hx Substance Use: No Substance used: cocaine, marijuana, lsd Hx Substance Use Treatment: No Allergies/Home Meds Allergies/Adverse Reactions: Allergies Penicillins Allergy (Verified 04/10/17 13:32) RASH Home Medications: Home Meds Medication Instructions Recorded Confirmed Omeprazole 40 mg PO DAILY 08/11/16 07/09/17 oxyCODONE [oxyCODONE Immediate 15 mg PO QID 04/10/17 07/09/17 Release Tab] Review of Systems - Review of Systems Constitutional: Normal Eyes: Normal ENT: Normal Respiratory: Normal Cardiovascular: Normal Gastrointestinal: Normal Genitourinary Male: Normal Musculoskeletal: Other ((+)right shoulder pain) Skin: Normal Neurological: Normal Endocrine: Normal Hemo/Lymphatic: Normal Psychiatric: Normal Physical Exam Vital Signs Temp Pulse Resp BP Pulse Ox 07/09/17 06:37 87 16 142/90 99 07/09/17 06:00 90 20 142/98 H 100 07/09/17 05:55 98.1 F 90 22 137/85 100 07/09/17 05:35 98.2 F 90 22 137/85 100 07/09/17 04:51 99.9 F H 89 20 144/89 93 L Temperature: Afebrile Blood Pressure: Normal Pulse: Regular Respiratory Rate: Normal Appearance: Positive for: Well-Appearing, Non-Toxic, Comfortable Pain Distress: None Mental Status: Positive for: Alert and Oriented X 3 - Systems Exam Head: Present: Atraumatic, Normocephalic Pupils: Present: PERRL Extroacular Muscles: Present: EOMI Conjunctiva: Present: Normal Mouth: Present: Moist Mucous Membranes Neck: Present: Normal Range of Motion Respiratory/Chest: Present: Clear to Auscultation, Good Air Exchange. No: Respiratory Distress, Accessory Muscle Use Cardiovascular: Present: Regular Rate and Rhythm, Normal S1, S2. No: Murmurs Abdomen: Present: Normal Bowel Sounds. No: Tenderness, Distention, Peritoneal Signs Back: Present: Normal Inspection Upper Extremity: Present: NORMAL PULSES, Tenderness, Swelling, Neurovascularly Intact, Other ((+)ttp/swelling to right shoulder). No: Cyanosis, Edema, Normal ROM Lower Extremity: Present: Normal Inspection. No: Edema Neurological: Present: GCS=15, CN II-XII Intact, Speech Normal Skin: Present: Warm, Dry, Normal Color. No: Rashes Psychiatric: Present: Alert, Oriented x 3, Normal Insight, Normal Concentration Medical Decision Making ED Course and Treatment: 07/09/17 06:34 pt sedated via ketamine. shoulder reduced. advise outpt follow up - RAD Interpretation Radiology Orders: 07/09/17 04:49 SHOULDER RIGHT [RAD] Stat 07/09/17 05:43 SHOULDER RIGHT [RAD] Stat - Medication Orders Current Medication Orders: Discontinued Medications Ketamine HCl (Ketalar) 92 mg IV ONCE ONE Stop: 07/09/17 05:26 Last Admin: 07/09/17 05:39 Dose: 92 mg Comments: Infuse over [address] Gilmore. Midazolam HCl (Versed Inj) 2 mg IVP STAT STA Stop: 07/09/17 05:26 Last Admin: 07/09/17 05:38 Dose: 2 mg ED Procedural Sedation - Pre Anesthesia Assessment Chief Complaint: Upper Extremity Problem/Injury - Pre-Procedure Airway Assessment ASA Criteria: 1 - Healthy, normal. 2 - Mild systemic disease (No functional limitations, mildline obesity, DM withot complications, Hypertention). 3 - Severe systemic disease (Some functional limitation, stable angina, morbid obesity, controlled COPD/Asthma/CHF). 4 - Sever systemic disease constant threat to life (Unstable angina, active symptoms of COPD/Asthma, CHF/ Hypertension. 5 - Moribund Nursing ED Procedural Sedation: ER Moderate Sedation Start: 07/09/17 06: 07 Freq: Status: Active Document 07/09/17 05:35 [facility] (Rec: 07/09/17 06:17 [id number] Mod Sedation Time Out Process Time Out Process Patient identification (MR# and name Yes from ID Band) Procedure verified Yes Consent read aloud and agreed upon Yes Correct Site/Side marked and visibe to Not Applicable team after prepping and draping (unless exempt) Implants, special equipment and x-rays Yes available Prophylactic antibiotic given (if Not Applicable applicable) Correct position Yes Correct Team Yes All team members are in agreement Yes Pre-Procedure Mod Sedation Pre-Procedure Checklist Patient's identity verified by Patient stating name Patient stating [facility] ID bracelet Pre Procedure Checklist BP monitor Signed consent Ambu bag Patient IV Patient ID Oxygen Airway Code Cart End Tidal CO2 Suction set up Pre Anesthesia Assessment Chief Complaint Upper Extremity Problem/Injury Physical Exam/Review of Systems Vital Signs Reviewed Yes Cardiovascular Regular Rate and Rhythm Respiratory/Chest Clear to Auscultation Neurological GCS=15 Speech Normal Mental Status Alert and Oriented X 3 Level of Consciousness 1 = Alert Moderate Sedation VS & Pain Ax Level of Consciousness Level of Consciousness 1 = Alert Temperature Temperature (97.6 F-99.6 F) 98.2 F Pulse Pulse Rate (60-90) 84 Respirations Respiratory Rate (12-24) 18 Oxygen Delivery Method Nasal Cannula SPO2 (95-100) 100 O2 LPM (L/min) 3 Blood Pressure Blood Pressure (100/60-150/90) 152/98 Cardiac Rhythm Cardiac Rhythm NSR Pain Pain Intensity 10 Intra-Procedure Vital Signs Vital Signs and Pain Assessment Blood Pressure (100/60-150/90) 135/98 Pulse Rate (60-90) 85 Respiratory Rate (12-24) 20 Level of Consciousness 1 = Alert Cardiac Rhythm NSR Intra-Procedure Vital Signs #2 Vital Signs and Pain Assessment Blood Pressure (100/60-150/90) 147/89 Pulse Rate (60-90) 88 Respiratory Rate (12-24) 18 Level of Consciousness 1 = Alert Pain Intensity 0 Cardiac Rhythm NRS Intra-Procedure Vital Signs #3 Vital Signs and Pain Assessment Blood Pressure (100/60-150/90) 127/88 Pulse Rate (60-90) 90 Respiratory Rate (12-24) 22 Level of Consciousness 1 = Alert Pain Intensity 0 Cardiac Rhythm NSR Intra-Procedure Vital Signs #4 Vital Signs and Pain Assessment Blood Pressure (100/60-150/90) 137/85 Pulse Rate (60-90) 90 Respiratory Rate (12-24) 22 Level of Consciousness 1 = Alert Pain Intensity 0 Cardiac Rhythm NSR REACT Score REACT Score Respirations Spontaneous Respirations > 10 Without Airway Support Energy Moves Legs: Can Keep Head Up Alertness Awake Seldom Dozes Circulation Systolic BP At PreOp or Above Full Pulse Temperature Temperature is >96 Degrees Farenheit Created 07/09/17 06:07 [facility] (Rec: 07/09/17 06:[address] [id number] - Intra-Procedure (Medications) Medications Given: Discontinued Medications Ketamine HCl (Ketalar) 92 mg IV ONCE ONE Stop: 07/09/17 05:26 Last Admin: 07/09/17 05:39 Dose: 92 mg Comments: Infuse over [address] Gilmore. Midazolam HCl (Versed Inj) 2 mg IVP STAT STA Stop: 07/09/17 05:26 Last Admin: 07/09/17 05:38 Dose: 2 mg Procedures - Joint Reduction Joint Reduction Site: shoulder (R) Conscious Sedation: Yes Reduction Attempts: 1 Pre-Procedure NV Exam: Yes (nv intact) Post Joint Reduction Film: joint reduced Disposition/Present on Arrival - Present on Arrival Any Indicators Present on Arrival: No History of DVT/PE: No History of Uncontrolled Diabetes: No Urinary Catheter: No History of Decub. Ulcer: No History Surgical Site Infection Following: None - Disposition Have Diagnosis and Disposition been Completed?: Yes Diagnosis: Shoulder dislocation Disposition: HOME/ ROUTINE Disposition Time: 06:33 Condition: STABLE Discharge Instructions (ExitCare): Shoulder Dislocation (ED) Additional Instructions: please follow up with orthopedics. return to emergency room with worsening symptoms or concerns. Referrals: [facility] Odell Renathaly, [Non-Staff] - Follow up with primary Angel Solitario MD [Staff Provider] - Follow up with primary Forms: [employer] (French)
[2017-07-09 06:37] VITALS: BP 142/90; PULSE 87; RESP 16; O2SAT 99
--- NOTE | 2017-07-09 11:47 | RAD ---
PROCEDURE: Radiographs of the Right Shoulder HISTORY: trauma COMPARISON: No prior. FINDINGS: BONES: No evidence of fracture related to dislocated right shoulder. JOINTS: Anterior inferior dislocation of the right humeral head relative to the glenoid. SOFT TISSUES: Normal. OTHER FINDINGS: None. IMPRESSION: Anterior inferior dislocation right humeral head relative to the glenoid without acute osseous abnormality/fracture
--- NOTE | 2017-07-09 11:47 | RAD ---
PROCEDURE: Radiographs of the Right Shoulder HISTORY: post COMPARISON: Pre reduction radiographs right shoulder. FINDINGS: BONES: No evidence of acute fracture. JOINTS: Anatomic alignment of the right humeral head and glenoid. SOFT TISSUES: Normal. OTHER FINDINGS: None. IMPRESSION: Satisfactory anatomic alignment following reduction of known of right shoulder dislocation. Concordant results with the preliminary interpretation rendered by the emergency department physician procedure.
== END 2017-07-09 06:52 | disposition home or self-care (01) ==
LOC: ED 04:39
DX: S43.014A Anterior dislocation of right humerus, initial encounter (principal); X50.1XXA Overexertion from prolonged static or awkward postures, initial encounter; Y93.89 Activity, other specified; Y92.89 Other specified places as the place of occurrence of the external cause
CPT/HCPCS: 23655; 73030; 96374; 99284; J2250

== ENCOUNTER 2018-04-12 22:11 | Emergency (ER) | payer MEDICARE ==
[2018-04-12 22:12] VITALS: BMI 30.4
== END 2018-04-12 22:55 | disposition left against medical advice (07) ==
LOC: ED 22:11
DX: Z02.89 Encounter for other administrative examinations (principal); R51 Headache

== ENCOUNTER 2018-05-10 01:34 | Emergency (ER) | payer MEDICARE ==
[2018-05-10 01:34] VITALS: BMI 30.4
--- NOTE | 2018-05-10 02:00 | ED PDOC ---
Arrival/HPI - General Chief Complaint: Substance Abuse Time Seen by Provider: 05/10/18 01:58 EM Caveat: Intoxicated - History of Present Illness Narrative History of Present Illness (Text): 05/10/18 01:59 62 year old male, whose past medical history includes GERD and polysubstance abuse, presents to the emergency department via EMS possible use of substance abuse. Patient denies any alcohol use tonight. HPI and ROS limited due to patient's intoxicated state. 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 - Musculoskeletal/Rheumatological Hx Musculoskeletal Disorders: Yes Hx Arthritis: Yes Hx Back Pain: Yes (CHRONIC) Hx Degenerative Joint Disease: Yes Hx Falls: Yes (04-09-17) Hx Herniated Disk: Yes Hx Rhabdomyolysis: Yes Other/Comment: RHABDOMYOLYSIS,L SHOULDER DISLOCATION 07-28-15,RIGHT AND LEFT SHOULDER DISLOCATION,ROTATOR CUFF TEAR,TORN MENISCUS-KNEES - Gastrointestinal Hx Gastrointestinal Disorders: Yes Hx Gastroesophageal Reflux: Yes - Genitourinary/Gynecological Hx Genitourinary Disorders: No - Psychiatric Hx Psychophysiologic Disorder: Yes Hx Emotional Abuse: No Hx Physical Abuse: No Hx Substance Use: No Other/Comment: ETOH ABUSE COCAINE PCP, 04-10-17 BINGE USE OF ILLICIT SUBSTANCE USE.USED 3 BAGS OF HEROINE,COCAINE,PCP, HAS BEEN CLEAN FOR 3 YRS.RELAPSED. - Surgical History Other/Comment: RIGHT LEFT ROTATOR CUFF SURGERY, BILATERAL KNEE MENISCAL TEAR, TONSILLECTOMY. - Anesthesia Hx Anesthesia: Yes Hx Anesthesia Reactions: No Hx Malignant Hyperthermia: No - Suicidal Assessment Feels Threatened In Home Enviroment: No Family/Social History - Physician Review Nursing Documentation Reviewed: Yes Family/Social History: No Known Family HX Smoking Status: Current Some Days Smoker Hx Alcohol Use: Yes (H/O 4 YRS AGO-2012) Hx Substance Use: No Substance used: cocaine, marijuana, lsd Hx Substance Use Treatment: No Allergies/Home Meds Allergies/Adverse Reactions: Allergies Penicillins Allergy (Verified 04/10/17 13:32) RASH Home Medications: Home Meds Medication Instructions Recorded Confirmed No Known Home Med 05/10/18 05/10/18 Review of Systems - Physician Review All systems were reviewed & negative as marked: Yes - Review of Systems Systems not reviewed;Unavailable: Intoxicated Physical Exam - Physical Exam Narrative Physical Exam (Text): 05/10/18 02:06 Constitutional: No acute distress. Head: Normocephalic. Atraumatic. Eyes: PERRL. Vertical nystagmus ENT: Moist mucous membranes. Neck: Supple. Cardiovascular: Regular rate. Chest: No tenderness. Respiratory: Clear to auscultation bilaterally. GI: Soft. Nontender. Nondistended. Back: No CVA tenderness. Musculoskeletal: No tenderness or swelling of extremities. Skin: No rash. Neurologic: Alert, no focal deficit. Vital Signs Reviewed: Yes Vital Signs Temp Pulse Resp BP Pulse Ox 05/10/18 03:41 97.9 F 91 H 17 128/71 95 05/10/18 01:41 97.9 F 90 17 147/87 95 Medical Decision Making ED Course and Treatment: 05/10/18 01:59 Plan: -- Reassess and disposition Progress Notes: Patient observed in ED for over 3 hours. Patient became more reasonable, steady gait. Discharged home. - Scribe Statement The provider has reviewed the documentation as recorded by the Nathan Payton Provider Scribe Attestation: All medical record entries made by the Nathan were at my direction and personally dictated by me. I have reviewed the chart and agree that the record accurately reflects my personal performance of the history, physical exam, medical decision making, and the department course for this patient. I have also personally directed, reviewed, and agree with the discharge instructions and disposition. Disposition/Present on Arrival - Present on Arrival Any Indicators Present on Arrival: No History of DVT/PE: No History of Uncontrolled Diabetes: No Urinary Catheter: No History of Decub. Ulcer: No History Surgical Site Infection Following: None - Disposition Have Diagnosis and Disposition been Completed?: Yes Diagnosis: Substance abuse Disposition: HOME/ ROUTINE Disposition Time: 05:13 Patient Plan: Discharge Condition: STABLE Discharge Instructions (ExitCare): Drug Abuse and Drug Addiction (DC) Forms: [employer] (Georgian)
[2018-05-10 05:17] VITALS: BP 133/75; PULSE 88; RESP 16; TEMP 98; O2SAT 99
== END 2018-05-10 05:19 | disposition home or self-care (01) ==
LOC: ED 01:34
DX: F19.10 Other psychoactive substance abuse, uncomplicated (principal)

== ENCOUNTER 2018-06-04 22:25 | Emergency (ER) | payer MEDICARE ==
[2018-06-04 22:39] VITALS: BMI 34.8
--- NOTE | 2018-06-04 22:49 | ED PDOC ---
Arrival/HPI - General Chief Complaint: Substance Abuse Time Seen by Provider: 06/04/18 22:33 Historian: Patient EM Caveat: Uncooperative - History of Present Illness Narrative History of Present Illness (Text): 06/04/18 22:48 62 year old male, who is well known to the ER, whose past medical history includes GERD and polysubstance abuse including PCP, presents to the emergency department for evaluation of agitation. Patient was found reportedly agitated at the [facility] where he resides where there was "broken glass". Upon entering ER, patient continues to be agitated and yelling. Patient will be sedated for the safety of himself and staff. HPI and ROS limited due to patient being uncooperative. 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 - Musculoskeletal/Rheumatological Hx Musculoskeletal Disorders: Yes Hx Arthritis: Yes Hx Back Pain: Yes (CHRONIC) Hx Degenerative Joint Disease: Yes Hx Falls: Yes (04-09-17) Hx Herniated Disk: Yes Hx Rhabdomyolysis: Yes Other/Comment: RHABDOMYOLYSIS,L SHOULDER DISLOCATION 07-28-15,RIGHT AND LEFT SHOULDER DISLOCATION,ROTATOR CUFF TEAR,TORN MENISCUS-KNEES - Gastrointestinal Hx Gastrointestinal Disorders: Yes Hx Gastroesophageal Reflux: Yes - Genitourinary/Gynecological Hx Genitourinary Disorders: No - Psychiatric Hx Psychophysiologic Disorder: Yes Hx Emotional Abuse: No Hx Physical Abuse: No Hx Substance Use: No Other/Comment: ETOH ABUSE COCAINE PCP, 04-10-17 BINGE USE OF ILLICIT SUBSTANCE USE.USED 3 BAGS OF HEROINE,COCAINE,PCP, HAS BEEN CLEAN FOR 3 YRS.RELAPSED. - Surgical History Other/Comment: RIGHT LEFT ROTATOR CUFF SURGERY, BILATERAL KNEE MENISCAL TEAR, TONSILLECTOMY. - Anesthesia Hx Anesthesia: Yes Hx Anesthesia Reactions: No Hx Malignant Hyperthermia: No - Suicidal Assessment Feels Threatened In Home Enviroment: No Family/Social History - Physician Review Nursing Documentation Reviewed: Yes Family/Social History: No Known Family HX Smoking Status: Current Some Days Smoker Hx Alcohol Use: Yes (H/O 4 YRS AGO-2013) Hx Substance Use: No Substance used: cocaine, marijuana, lsd Hx Substance Use Treatment: No Allergies/Home Meds Allergies/Adverse Reactions: Allergies Penicillins Allergy (Verified 06/04/18 22:39) RASH Home Medications: Home Meds Medication Instructions Recorded Confirmed No Known Home Med 05/10/18 06/04/18 Review of Systems - Physician Review All systems were reviewed & negative as marked: Yes - Review of Systems Systems not reviewed;Unavailable: Uncooperative Physical Exam Vital Signs Reviewed: Yes Vital Signs Temp Pulse Resp BP Pulse Ox 06/04/18 22:40 98.1 F 81 18 125/85 96 Temperature: Afebrile Blood Pressure: Normal Pulse: Regular Respiratory Rate: Normal Appearance: Positive for: Well-Appearing, Non-Toxic, Comfortable Pain Distress: None Mental Status: Positive for: Agitated - Systems Exam Head: Present: Atraumatic, Normocephalic Pupils: Present: PERRL Extroacular Muscles: Present: EOMI Conjunctiva: Present: Normal Mouth: Present: Moist Mucous Membranes Neck: Present: Normal Range of Motion Respiratory/Chest: Present: Clear to Auscultation, Good Air Exchange. No: Respiratory Distress, Accessory Muscle Use Cardiovascular: Present: Regular Rate and Rhythm, Normal S1, S2. No: Murmurs Abdomen: No: Tenderness, Distention, Peritoneal Signs Back: Present: Normal Inspection Upper Extremity: Present: Normal Inspection. No: Cyanosis, Edema Lower Extremity: Present: Normal Inspection. No: Edema Neurological: Present: GCS=15, CN II-XII Intact, Speech Normal Skin: Present: Warm, Dry, Normal Color. No: Rashes Psychiatric: Present: Alert, Agitated Medical Decision Making ED Course and Treatment: 06/04/18 22:48 Impression: 62 year old male presents found agitated at the [facility]. Patient arrived to the ER agitated and yelling. Plan: -- Labs -- Ativan, Geodon Inj -- Urinalysis -- Reassess and disposition Prior Visits: Notes and results from previous visits were reviewed. Patient was last seen in the emergency department on 05/10/18 presents for possible use of substance abuse. Patient was discharged. Progress Notes: Patient is agitated and yelling upon entering ER. Patient is restrained and sedated for the safety of himself and the staff. 06/05/18 05:32 Code Star called. Patient fell out of bed. Re-evaluated patient. No injuries noted. 06/05/18 05:56 pt observed after code star. seen ambulating at baseline with cane. no complaint after fall. no head injury witnessed by rn - Lab Interpretations Lab Results: 06/05/18 01:02 06/05/18 01:02 Lab Results 06/05/18 01:02: Alcohol, Quantitative < 10 06/05/18 01:02: Salicylates < 1 L, Acetaminophen < 10.0 L 06/05/18 01:02: Sodium 141, Potassium 4.1, Chloride 106, Carbon Dioxide 27, Anion Gap 12, BUN 27 H, Creatinine 0.6 L, Est GFR ( Amer) > 60, Est GFR ( Non-Af Amer) > 60, Random Glucose 114 H, Calcium 8.9, Magnesium 2.1, Total Bilirubin 0.6, AST 16 L D, ALT 22, Alkaline Phosphatase 61, Total Protein 6.2, Albumin 4.0, Globulin 2.2, Albumin/Globulin Ratio 1.8 06/05/18 01:02: WBC 6.7 D, RBC 4.28, Hgb 12.3 L, Hct 37.0 L, MCV 86.4, MCH 28.7 , MCHC 33.2, RDW 13.9, Plt Count 210, MPV 9.6, Gran % 67.6, Lymph % (Auto) 22.4 , [place] % (Auto) 6.9 H, Eos % (Auto) 2.6, Baso % (Auto) 0.5, Gran # 4.50, Lymph # (Auto) 1.5, [place] # (Auto) 0.5, Eos # (Auto) 0.2, Baso # (Auto) 0.03 I have reviewed the lab results: Yes - Medication Orders Current Medication Orders: Discontinued Medications Lorazepam (Ativan) 2 mg IM ONCE ONE PRN Reason: Protocol Stop: 06/04/18 22:42 Ziprasidone (Geodon Inj) 20 mg IM STAT STA PRN Reason: Protocol Stop: 06/04/18 22:42 Last Admin: 06/04/18 22:41 Dose: 20 mg IM Administration Charges Document 06/04/18 22:41 IT (Rec: 06/05/18 03:17 IT [id number]) Injection Site MAR Injection Site Left Deltoid Charges for Administration # of IM Administrations 1 - Scribe Statement The provider has reviewed the documentation as recorded by the aNthan Payton Provider Scribe Attestation: All medical record entries made by the Scribmalissa were at my direction and personally dictated by me. I have reviewed the chart and agree that the record accurately reflects my personal performance of the history, physical exam, medical decision making, and the department course for this patient. I have also personally directed, reviewed, and agree with the discharge instructions and disposition. Disposition/Present on Arrival - Present on Arrival Any Indicators Present on Arrival: No History of DVT/PE: No History of Uncontrolled Diabetes: No Urinary Catheter: No History of Decub. Ulcer: No History Surgical Site Infection Following: None - Disposition Have Diagnosis and Disposition been Completed?: Yes Diagnosis: Substance abuse Disposition: HOME/ ROUTINE Disposition Time: 22:00 Patient Problems: Current Active Problems Problem Status Onset Substance abuse Acute Condition: STABLE Discharge Instructions (ExitCare): Drug Abuse and Drug Addiction (DC) Additional Instructions: return to er with worsening symptoms or concenrs. Referrals: [facility] [Outside] - Follow up with primary [facility] [Outside] - Follow up with primary Forms: [employer] (Iranian)
[2018-06-05 01:24] LABS: BASO # 0.03 K/mm3 (0.0-2.0); BASO % 0.5 % (0.0-3.0); EOS # 0.2 (0.0-0.7); EOS % 2.6 % (1.5-5.0); GRAN # 4.5 (1.4-6.5); GRAN % 67.6 % (50.0-68.0); HEMOGLOBIN 12.3 g/dL (14.0-18.0); LYMPH # 1.5 (1.2-3.4); LYMPH % 22.4 % (22.0-35.0); MEAN CELL VOLUME 86.4 fl (80.0-105.0); MEAN CORPUSCULAR HEMOGLOBIN 28.7 pg (25.0-35.0); MEAN CORPUSCULAR HGB CONC 33.2 g/dl (31.0-37.0); MEAN PLATELET VOLUME 9.6 fl (7.0-11.0); MONO # 0.5 (0.1-0.6); MONO % 6.9 % (1.0-6.0); RBC 4.28 10^6/uL (3.5-6.1); RED CELL DISTRIBUTION WIDTH 13.9 % (11.5-14.5); WHITE BLOOD COUNT 6.7 10^3/ul (4.5-11.0)
[2018-06-05 01:25] LABS: ACETAMINOPHEN < 10.0 ug/ml (10.0-20.0); SALICYLATE < 1 mg/dL (2.0-20.0)
[2018-06-05 01:27] LABS: ALB/GLOB RATIO 1.8 (1.1-1.8); ALT/SGPT 22 U/L (7-56); AST/SGOT 16 U/L (17-59); BLOOD UREA NITROGEN 27 mg/dL (7-21); CALCIUM 8.9 mg/dL (8.4-10.5); GFR AFRICAN-AMERICAN > 60; GFR NON-AFRICAN AMERICAN > 60
[2018-06-05 05:59] VITALS: BP 122/72; PULSE 82; RESP 17; TEMP 98.6; O2SAT 98
== END 2018-06-05 05:59 | disposition home or self-care (01) ==
LOC: ED 22:25
DX: F19.10 Other psychoactive substance abuse, uncomplicated (principal)
CPT/HCPCS: 80053; 83735; 85025; 96372; 99283; G0480; J3486

== ENCOUNTER 2018-10-07 11:31 | Emergency (ER) | payer MEDICARE ==
[2018-10-07 11:37] VITALS: BMI 29.7
[2018-10-07 11:39] VITALS: RESP 18
[2018-10-07] MEDS ORDERED: Lidocaine 1% Inj (20ml) IJ STA (11:42)
--- NOTE | 2018-10-07 11:46 | ED PDOC ---
Arrival/HPI - General Chief Complaint: Trauma Historian: Patient - History of Present Illness Narrative History of Present Illness (Text): 10/07/18 11:44 63 y/o male, pmh including gerd/recurrent rt. shoulder dislocation/nasal fracture, penicillin allergy, biba for fall with rt. shoulder dislocation with unknown LOC. Pt. was found at the [facility], noted the fall, slipped and fall, admits using PCP prior to arrival, not sure of LOC but there is deformity of the rt. shoulder with injury, here at the ER found to be in pain only on rt. shoulder, no neck/back/abdominal/chest or other extremity injury/pain, no chest pain/palpitation, no numbness or tingling, no diarrhea, no nausea/vomiting, no other medical or psychological complaints. 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 - Musculoskeletal/Rheumatological Hx Musculoskeletal Disorders: Yes Hx Arthritis: Yes Hx Back Pain: Yes (CHRONIC) Hx Degenerative Joint Disease: Yes Hx Falls: Yes (04-09-17) Hx Herniated Disk: Yes Hx Rhabdomyolysis: Yes Other/Comment: RHABDOMYOLYSIS,L SHOULDER DISLOCATION 07-28-15,RIGHT AND LEFT SHOULDER DISLOCATION,ROTATOR CUFF TEAR,TORN MENISCUS-KNEES - Gastrointestinal Hx Gastrointestinal Disorders: Yes Hx Gastroesophageal Reflux: Yes - Genitourinary/Gynecological Hx Genitourinary Disorders: No - Psychiatric Hx Psychophysiologic Disorder: Yes Hx Emotional Abuse: No Hx Physical Abuse: No Hx Substance Use: No Other/Comment: ETOH ABUSE COCAINE PCP, 04-10-17 BINGE USE OF ILLICIT SUBSTANCE USE.USED 3 BAGS OF HEROINE,COCAINE,PCP, HAS BEEN CLEAN FOR 3 YRS.RELAPSED. - Surgical History Other/Comment: RIGHT LEFT ROTATOR CUFF SURGERY, BILATERAL KNEE MENISCAL TEAR,TONSILLECTOMY. - Anesthesia Hx Anesthesia: Yes Hx Anesthesia Reactions: No Hx Malignant Hyperthermia: No - Suicidal Assessment Feels Threatened In Home Enviroment: No Family/Social History - Physician Review Nursing Documentation Reviewed: Yes Family/Social History: Unknown Family HX Smoking Status: Current Some Days Smoker Hx Alcohol Use: Yes (H/O 4 YRS AGO-2013) Hx Substance Use: No Substance used: cocaine, marijuana, lsd Hx Substance Use Treatment: No Allergies/Home Meds Allergies/Adverse Reactions: Allergies Penicillins Allergy (Verified 06/04/18 22:39) RASH Review of Systems - Review of Systems Constitutional: absent: Fatigue, Fevers Eyes: absent: Vision Changes ENT: absent: Hearing Changes Respiratory: absent: SOB Cardiovascular: absent: Chest Pain Gastrointestinal: absent: Abdominal Pain, Diarrhea, Nausea, Vomiting Musculoskeletal: Arthralgias. absent: Back Pain, Neck Pain, Joint Swelling, Myalgias Skin: absent: Rash, Pruritis Neurological: absent: Headache, Dizziness Psychiatric: absent: Anxiety, Depression, Suicidal Ideation Physical Exam Vital Signs Reviewed: Yes Vital Signs Temp Pulse Resp BP Pulse Ox 10/07/18 11:31 98.2 F 59 L 18 147/89 96 Temperature: Afebrile Blood Pressure: Normal Pulse: Bradycardic Respiratory Rate: Normal Appearance: Positive for: Well-Appearing, Non-Toxic, Comfortable Pain Distress: None Mental Status: Positive for: Confused - Systems Exam Head: Present: Atraumatic, Normocephalic, Other (no facial bony tenderness). No: Tenderness, Contusion, Swelling, Ecchymosis, Abrasion, Laceration Pupils: Present: PERRL Extroacular Muscles: Present: EOMI Conjunctiva: Present: Normal Ears: Present: NORMAL TM, Normal Canal. No: Erythema Mouth: Present: Moist Mucous Membranes Pharnyx: Present: Normal. No: ERYTHEMA, EXUDATE, TONSILS ENLARGED Nose (External): Present: Atraumatic. No: Abrasion, Contusion, Laceration Nose (Internal): Present: Normal Inspection, No Active Bleeding. No: Rhinorrhea, Septal Hematoma, Epistaxis Neck: Present: Normal Range of Motion, Trachea Midline. No: Meningeal Signs, MIDLINE TENDERNESS, Paraspinal Tenderness, Lymphadenopathy Respiratory/Chest: Present: Clear to Auscultation, Good Air Exchange. No: Respiratory Distress, Accessory Muscle Use, Wheezes, Retracting, Rhonchi Cardiovascular: Present: Regular Rate and Rhythm, Normal S1, S2. No: Murmurs Abdomen: No: Tenderness, Distention, Peritoneal Signs, Rebound, Guarding Back: Present: Normal Inspection. No: CVA Tenderness, Midline Tenderness Upper Extremity: Present: Normal Inspection, Normal ROM, NORMAL PULSES, Neurovascularly Intact, Capillary Refill < 2s, Norm 2-Pt Discrimination, Other (Rt. shoulder: +deformity noted, skin intact, no laceration or abrasion, Limited ROM due to linda deformity, sensation intact, motor 5/5, +radial pulse, capillary refill< 2 seconds, neurovascular intact. ). No: Cyanosis, Edema, Tenderness, Swelling, Erythema, Temperature Abnormalties Lower Extremity: Present: Normal Inspection, NORMAL PULSES, Normal ROM, Neurovascularly Intact, Capillary Refill < 2 s. No: Edema, CALF TENDERNESS, H billy's Sign, Tenderness, Swelling, Deformity Neurological: Present: GCS=15, CN II-XII Intact, Speech Normal, Motor Func Grossly Intact, Memory Normal Skin: Present: Warm, Dry, Normal Color. No: Rashes Psychiatric: Present: Alert, Oriented x 3, Normal Insight, Normal Concentration Medical Decision Making ED Course and Treatment: 10/07/18 11:49 -Labs -Ct head -Xray -EKG -IVF -Observe and reassess 10/07/18 12:09 -Rt. shoulder xray: +anterior dislocation with no obvious fracture. -Bedside reduction performed by me with 10cc lidocaine inject articular after clean with betadine swab and alcohol pads, sterile technique. PROCEDURE: REDUCTION Performed by the emergency provider Time: 12:09 Consent: Informed consent, after discussion of the risks, benefits, and alternatives to the procedure, was obtained. Timeout: A timeout to verify the correct patient, procedure, and site was performed immediately prior to the procedure. Indication: Rt. shoulder anterior dislocation Location: Rt. shoulder Sedation: . See MAR for details. Pre-procedure neurovascular status: Distal neurovascular status intact. Technique: Rt. UE anxial traction with garcia technique with single attempt, post reduction x 1. He is able to have full range of movement of the rt. shoulder without difficulty, neurovascular intact, deformity resolved. Post-procedure neurovascular status: Distal neurovascular status remains intact. Confirmation: Post-reduction films confirm reduction. See post-procedure X-Ray interpretation. Post-procedure: Patient tolerated the procedure well with no immediate complications. The reduction site was immobilized with a shoulder sling/swab 10/07/18 15:19 -EKG NSR @ 91 BPM, no ST elevation or depression, no T wave inversion. -CT head: No acute intracranial findings -Rt. shoulder post reduction: ER wet read: no fracture or dislocation, reduction with success. -Labs are non-significant -CPK within normal limit -Mg within normal limit -Alcohol within normal limit -Drug screen show +PCP and +cocaine. -Pt. is at the baseline AOX4, no focal neurological deficits, request to be discharged. -I offered the patient to remain in the ER for further observation but he refused. Pt. stated that he wants to go and he feels well, walking around with no neurological or cardiopulmonary complaints, no palpitation/dizziness, no chest pain, no other medical or psychological complaints. -Sling apply with neurovascular intact. -Discharge home with sling, tylenol, ice compression, follow up with your own pmd and orthopedic within 2 days, return to the ER for any new or worsening signs or symptoms. 10/07/18 15:20 - RAD Interpretation Radiology Orders: 10/07/18 11:41 HEAD W/O CONTRAST [CT] Stat SHOULDER RIGHT [RAD] Stat Rt. shoulder initially: Date of service: 10/07/2018 PROCEDURE: Radiographs of the Right Shoulder HISTORY: rt. shoulder dislocation? fall COMPARISON: No prior. FINDINGS: BONES: Normal. No fracture. JOINTS: Anterior dislocation of the humerus. SOFT TISSUES: Normal. OTHER FINDINGS: None. IMPRESSION: Anterior dislocation Rt. shoulder post: Date of service: 10/07/2018 PROCEDURE: Radiographs of the Right Shoulder HISTORY: post reduction? COMPARISON: No prior. FINDINGS: BONES: Normal. No fracture. JOINTS: Normal. Glenohumeral and acromioclavicular joints preserved. No osteoarthritis. SOFT TISSUES: Normal. OTHER FINDINGS: None. IMPRESSION: Successful reduction of dislocation CT Head: Date of service: 10/07/2018 PROCEDURE: CT HEAD WITHOUT CONTRAST. HISTORY: fall COMPARISON: 04/10/2017 TECHNIQUE: Axial computed tomography images were obtained through the head/brain without intravenous contrast. Radiation dose: Total exam DLP = 1028.47 mGy-cm. This CT exam was performed using one or more of the following dose reduction techniques: Automated exposure control, adjustment of the mA and/or kV according to patient size, and/or use of iterative reconstruction technique. FINDINGS: HEMORRHAGE: No intracranial hemorrhage. BRAIN: No mass effect or edema. No atrophy or chronic microvascular ischemic changes. VENTRICLES: Unremarkable. No hydrocephalus. CALVARIUM: Unremarkable. PARANASAL SINUSES: Unremarkable as visualized. No significant inflammatory changes. MASTOID AIR CELLS: Unremarkable as visualized. No inflammatory changes. OTHER FINDINGS: None. IMPRESSION: No acute intracranial findings Steamship Agent: Radiologist - EKG Interpretation EKG Interpretation (Text): 10/07/18 14:40 -EKG NSR @ 91 BPM, no ST elevation or depression, no T wave inversion. Interpreted by ED Physician: Yes Type: 12 lead EKG - PA / EFFICIENCY MINER / Resident Statement / has reviewed & agrees with the documentation as recorded. Disposition/Present on Arrival - Present on Arrival Any Indicators Present on Arrival: No History of DVT/PE: No History of Uncontrolled Diabetes: No Urinary Catheter: No History of Decub. Ulcer: No History Surgical Site Infection Following: None - Disposition Have Diagnosis and Disposition been Completed?: Yes Diagnosis: Shoulder dislocation, Fall, Polysubstance abuse Disposition: HOME/ ROUTINE Disposition Time: 15:19 Patient Plan: Discharge Patient Problems: Current Active Problems Problem Status Onset Fall Acute Polysubstance abuse Acute Shoulder dislocation Acute Condition: IMPROVED Additional Instructions: -Discharge home with sling, tylenol, ice compression, follow up with your own pmd and orthopedic within 2 days, return to the ER for any new or worsening signs or symptoms. Prescriptions: Acetaminophen [Tylenol 325mg tab] 2 tab PO QID PRN #30 tab PRN Reason: Other Referrals: Chauncey Pettit III, MD [Medical Doctor] - Follow up with primary [facility] at [facility] [Outside] - Follow up with primary Forms: [employer] (Hebrew)
[2018-10-07 12:31] LABS: BASO # 0.05 K/mm3 (0.0-2.0); BASO % 0.7 % (0.0-3.0); EOS # 0.2 (0.0-0.7); EOS % 2.8 % (1.5-5.0); GRAN # 4.71 (1.4-6.5); GRAN % 65.7 % (50.0-68.0); LYMPH # 1.8 (1.2-3.4); LYMPH % 25.4 % (22.0-35.0); MEAN CELL VOLUME 87.9 fl (80.0-105.0); MEAN CORPUSCULAR HEMOGLOBIN 28.6 pg (25.0-35.0); MEAN CORPUSCULAR HGB CONC 32.5 g/dl (31.0-37.0); MONO # 0.4 (0.1-0.6); MONO % 5.4 % (1.0-6.0); RBC 4.55 10^6/uL (3.5-6.1); RED CELL DISTRIBUTION WIDTH 14.1 % (11.5-14.5); WHITE BLOOD COUNT 7.2 10^3/uL (4.5-11.0)
[2018-10-07 12:42] LABS: ALB/GLOB RATIO 1.7 (1.1-1.8)
[2018-10-07 12:44] LABS: ALBUMIN 4.5 g/dL (3.0-4.8); ALT/SGPT 23 U/L (7-56); AST/SGOT 18 U/L (17-59); BLOOD UREA NITROGEN 21 mg/dL (7-21); CALCIUM 9.2 mg/dL (8.4-10.5); GFR NON-AFRICAN AMERICAN > 60
--- NOTE | 2018-10-07 12:50 | CT ---
Date of service: 10/07/2018 PROCEDURE: CT HEAD WITHOUT CONTRAST. HISTORY: fall COMPARISON: 04/10/2017 TECHNIQUE: Axial computed tomography images were obtained through the head/brain without intravenous contrast. Radiation dose: Total exam DLP = 1028.47 mGy-cm. This CT exam was performed using one or more of the following dose reduction techniques: Automated exposure control, adjustment of the mA and/or kV according to patient size, and/or use of iterative reconstruction technique. FINDINGS: HEMORRHAGE: No intracranial hemorrhage. BRAIN: No mass effect or edema. No atrophy or chronic microvascular ischemic changes. VENTRICLES: Unremarkable. No hydrocephalus. CALVARIUM: Unremarkable. PARANASAL SINUSES: Unremarkable as visualized. No significant inflammatory changes. MASTOID AIR CELLS: Unremarkable as visualized. No inflammatory changes. OTHER FINDINGS: None. IMPRESSION: No acute intracranial findings
--- NOTE | 2018-10-07 12:59 | RAD ---
Date of service: 10/07/2018 PROCEDURE: Radiographs of the Right Shoulder HISTORY: rt. shoulder dislocation? fall COMPARISON: No prior. FINDINGS: BONES: Normal. No fracture. JOINTS: Anterior dislocation of the humerus. SOFT TISSUES: Normal. OTHER FINDINGS: None. IMPRESSION: Anterior dislocation
--- NOTE | 2018-10-07 13:52 | RAD ---
Date of service: 10/07/2018 PROCEDURE: Radiographs of the Right Shoulder HISTORY: post reduction? COMPARISON: No prior. FINDINGS: BONES: Normal. No fracture. JOINTS: Normal. Glenohumeral and acromioclavicular joints preserved. No osteoarthritis. SOFT TISSUES: Normal. OTHER FINDINGS: None. IMPRESSION: Successful reduction of dislocation
[2018-10-07 14:47] LABS: BARBITURATES, UR NEGATIVE (NEGATIVE); BENZODIAZEPINES, UR NEGATIVE (NEGATIVE); OPIATES, UR NEGATIVE (NEGATIVE); PHENCYCLIDINE, UR POSITIVE (NEGATIVE)
[2018-10-07 15:04] VITALS: BP 125/70; PULSE 82; TEMP 98.1; O2SAT 97
--- NOTE | 2018-10-07 16:14 | CARD ---
APPROVED REPORT Date of service: 10/07/2018 EKG Measurement Heart [id number] [id number] <Conclusion> Normal sinus rhythm Possible Left atrial enlargement Borderline ECG
--- NOTE | 2018-10-07 16:15 | CARD ---
APPROVED REPORT Date of service: 10/07/2018 EKG Measurement Heart [id number] <Conclusion> NSR with run of APCs Abnormal ECG
== END 2018-10-07 15:47 | disposition home or self-care (01) ==
LOC: ED 11:31
DX: S43.004A Unspecified dislocation of right shoulder joint, initial encounter (principal); W03.XXXA Other fall on same level due to collision with another person, initial encounter; Y92.89 Other specified places as the place of occurrence of the external cause; F19.10 Other psychoactive substance abuse, uncomplicated
CPT/HCPCS: 23655; 70450; 73030; 80053; 82550; 83735; 85025; 93005; 99285; G0480; L3650

== ENCOUNTER 2019-01-27 19:31 | Emergency (ER) | payer MEDICARE ==
[2019-01-27 19:37] VITALS: BMI 27.2
--- NOTE | 2019-01-27 21:27 | ED PDOC ---
Arrival/HPI - General Chief Complaint: Altered Mental Status Time Seen by Provider: 01/27/19 19:35 Historian: Patient - History of Present Illness Narrative History of Present Illness (Text): 01/27/19 21:35 Dharmesh Patel is a 63 year old male, with past medical history of GERD, polysubstance abuse, shoulder dislocation, and nasal fracture, who presents to the ED brought in by EMS status post syncopal episode. Patient states his right leg gave out while walking and fell to the ground. Patient states he lost consciousness, but was unable to recall in the incident. Patient states he currently feels fine, only complaining of some right knee pain. Patient denies any fever, chills, chest pain, shortness of breath, abdominal pain, nausea, vomiting, diarrhea, urinary symptoms, back pain, neck pain, headache, dizziness, or any other complaints. 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 - Musculoskeletal/Rheumatological Hx Musculoskeletal Disorders: Yes - Gastrointestinal Hx Gastrointestinal Disorders: Yes Hx Gastroesophageal Reflux: Yes - Genitourinary/Gynecological Hx Genitourinary Disorders: No - Psychiatric Hx Emotional Abuse: No Hx Physical Abuse: No Hx Substance Use: No (IN THE PAST BUT FOUND ER VISIT FOR SYNCOPE FROM LSD) - Surgical History Other/Comment: RIGHT LEFT ROTATOR CUFF SURGERY, BILATERAL KNEE MENISCAL TEAR,TONSILLECTOMY. - Anesthesia Hx Anesthesia Reactions: No Hx Malignant Hyperthermia: No - Suicidal Assessment Feels Threatened In Home Enviroment: No Family/Social History - Physician Review Nursing Documentation Reviewed: Yes Family/Social History: Unknown Family HX Smoking Status: Current Some Days Smoker Hx Alcohol Use: No Hx Substance Use: No (IN THE PAST BUT FOUND ER VISIT FOR SYNCOPE FROM LSD) Substance used: cocaine, marijuana, lsd Hx Substance Use Treatment: No Allergies/Home Meds Allergies/Adverse Reactions: Allergies Penicillins Allergy (Verified 06/04/18 22:39) RASH Home Medications: Home Meds Medication Instructions Recorded Confirmed Omeprazole 40 mg PO DAILY 11/30/18 11/30/18 oxyCODONE [oxyCODONE Immediate 15 mg PO PRN PRN 11/30/18 11/30/18 Release Tab] Review of Systems - Physician Review All systems were reviewed & negative as marked: Yes - Review of Systems Constitutional: absent: Fatigue, Weight Change, Fevers Eyes: absent: Vision Changes ENT: absent: Hearing Changes Respiratory: absent: SOB, Cough, Wheezing Cardiovascular: Syncope. absent: Chest Pain, Edema Gastrointestinal: absent: Abdominal Pain Musculoskeletal: Other (right knee pain ) Skin: absent: Rash, Laceration, Abscess Neurological: absent: Headache, Dizziness, Focal Weakness, Facial Droop Physical Exam Vital Signs Reviewed: Yes Vital Signs Temp Pulse Resp BP Pulse Ox 01/27/19 19:33 98.4 F 100 H 18 95/66 L 94 L Temperature: Afebrile Blood Pressure: Normal Pulse: Regular Respiratory Rate: Normal Appearance: Positive for: Well-Appearing Pain Distress: None Mental Status: Positive for: Alert and Oriented X 3 Finger Stick Blood Glucose: 94 - Systems Exam Head: Present: Atraumatic, Normocephalic Pupils: Present: PERRL. No: Non-Reactive Extroacular Muscles: Present: EOMI Conjunctiva: Present: Normal Mouth: Present: Moist Mucous Membranes Neck: Present: Normal Range of Motion Respiratory/Chest: Present: Clear to Auscultation, Good Air Exchange, Respiratory Distress Cardiovascular: Present: Regular Rate and Rhythm. No: Murmurs, Irregular Rhythm Abdomen: No: Tenderness, Distention Back: Present: Normal Inspection. No: CVA Tenderness, Midline Tenderness, Paraspinal Tenderness Upper Extremity: Present: Normal Inspection. No: Edema Lower Extremity: Present: Normal Inspection. No: Edema Neurological: Present: GCS=15, Speech Normal Skin: Present: Warm, Dry, Rashes, Normal Color. No: Abscess, Abrasion Psychiatric: Present: Alert, Oriented x 3, Normal Insight Medical Decision Making ED Course and Treatment: 03/29/19 21:42 Impression: 53 year old male brought in s/p syncopal episode. Plan: --CT Scan --EKG --Labs --Chest X-ray -- Reassess and disposition Prior Visits: Notes and results from previous visits were reviewed. Progress Notes: EKG review normal sinus rhythm at 69. No acute ST/T change 01/27/19 21:10 Patient is choosing to leave against medical advice. The EP has personally explained to the pt that choosing to do so may result in permanent bodily harm or . The EP discussed at great length that without further evaluation and monitoring there may be unforeseen circumstances and/or deterioration causing permanent bodily harm or as a result of their choice. The pt verbalized these risks back to the physician in laymans terms. The pt is alert, oriented, and shows the mental capacity to make clear decisions regarding the pts health care at this time. The pt continues to wish to leave against medical advice. In light of the pts decision to leave AMA, pt is aware of the importance of following up as instructed. The pt has been advised that they should return to the ED immediately if they change their mind at any time, or if thier condition begins to change or worsen in any way. - RAD Interpretation Radiology Orders: 01/27/19 20:25 CHEST PORTABLE [RAD] Stat 01/27/19 20:26 HEAD W/O CONTRAST [CT] Stat - EKG Interpretation Interpreted by ED Physician: Yes - Scribe Statement The provider has reviewed the documentation as recorded by the Scribe Kamilah fang training under [place] Documented by [Kamilah Fang] acting as a scribe for Clarence Patel MD. Disposition/Present on Arrival - Present on Arrival Any Indicators Present on Arrival: No History of DVT/PE: No History of Uncontrolled Diabetes: No Urinary Catheter: No History of Decub. Ulcer: No History Surgical Site Infection Following: None - Disposition Have Diagnosis and Disposition been Completed?: Yes Diagnosis: Syncope Disposition: AGAINST MEDICAL ADVICE Disposition Time: 21:55 Condition: STABLE Discharge Instructions (ExitCare): Syncope (ED) Forms: [employer] (Af[place])
[2019-01-27 22:15] VITALS: BP 103/66; PULSE 87; TEMP 98.2; O2SAT 95
[2019-01-27 22:17] VITALS: RESP 18
--- NOTE | 2019-01-28 19:00 | CARD ---
APPROVED REPORT Date of service: 01/27/2019 EKG Measurement Heart [id number] MT [id number] [id number] <Conclusion> Normal sinus rhythm with sinus arrhythmia Normal ECG
== END 2019-01-27 22:10 | disposition left against medical advice (07) ==
LOC: ED 19:31
DX: R55 Syncope and collapse (principal)

== ENCOUNTER 2019-03-24 09:00 | Day surgery (SDC) | payer MEDICARE ==
[2019-03-24] MEDS ORDERED: Propofol 10 mg/ml Inj (20 ML) ONE (11:08)
[2019-03-24] MEDS ORDERED: Midazolam 2 MG/2 ML VIAL ONE ×3 (11:09→11:29)
[2019-03-24] MEDS ORDERED: Sodium Chloride 0.9% 1,000 ML IV SCH (12:00)
[2019-03-24 12:10] VITALS: RESP 16
[2019-03-24 12:32] VITALS: PULSE 62; TEMP 97.6; O2SAT 98
[2019-03-24 14:06] VITALS: BP 105/71
== END 2019-03-24 13:27 | disposition home or self-care (01) ==
LOC: ENDO 09:00
PROVIDERS: ATTEND Internal Medicine Gastroenterology
DX: Z12.11 Encounter for screening for malignant neoplasm of colon (principal); D12.5 Benign neoplasm of sigmoid colon; K57.30 Diverticulosis of large intestine without perforation or abscess without bleeding; K21.0 Gastro-esophageal reflux disease with esophagitis; K26.9 Duodenal ulcer, unspecified as acute or chronic, without hemorrhage or perforation; K29.50 Unspecified chronic gastritis without bleeding; K31.9 Disease of stomach and duodenum, unspecified; K64.8 Other hemorrhoids
CPT/HCPCS: 43239; 45380; 88305; 88312; 88342; J2250; J2704; J3010; J7030; J7040